=== PATIENT | female | born 1930 | race Caucasian/White ===

== ENCOUNTER 2016-04-02 14:26 | Inpatient (IN) | payer MEDICARE ==
[2016-04-02] MEDS ORDERED: SODIUM CHLORIDE 0.9% 1,000 ML IV STA (15:21)
[2016-04-02] MEDS ORDERED: SODIUM CHLORIDE 0.9% 250 ML IV STA (15:21)
[2016-04-02] MEDS ORDERED: PIPERACILLIN-TAZOBACTAM 3.375 GM in DEXTROSE/WATER 1 50ML.BAG IVPB STA (15:22)
--- NOTE | 2016-04-02 15:24 | ED ---
General Adult HPI - General Chief complaint: Urogenital Stated complaint: UTI-sent by Time Seen by Provider: 04/02/16 15:03 Source: patient, RN notes reviewed Mode of arrival: wheelchair Limitations: no limitations - History of Present Illness Initial comments: Patient is an 85-year-old female who presents emergency room today with a chief complaint of a urinary tract infection. She states she was notified by the family doctor to come to the emergency room for admission for urinary tract infection that can only be treated by IV antibiotics. Patient states that she was at lunch earlier today he did have an episode of feeling lightheaded and dizzy. States is feeling better but feels that she might be, lightheadedness tries to get up. She denies any other complaints or associated symptoms. Patient denies any recent fever, chills, shortness of breath, chest pain, back pain, abdominal pain, nausea or vomiting, numbness or tingling, dysuria or hematuria, constipation or diarrhea, headaches or visual changes, or any other complaints. - Related Data Home Medications Medication Instructions Recorded Confirmed Fenofibrate,Micronized 134 mg PO [id number] 12/11/15 04/02/16 [Fenofibrate] Hydrochlorothiazide [Hydrodiuril] 12.5 mg PO DAILY 12/11/15 04/02/16 Levothyroxine Sodium [Synthroid] 88 mcg PO DAILY 12/11/15 04/02/16 Lisinopril 20 mg PO BID 12/11/15 04/02/16 Memantine [Namenda] 5 mg PO DAILY 12/11/15 04/02/16 Atorvastatin [Lipitor] 10 mg PO HS 12/13/15 04/02/16 Calcium Carbonate/Vitamin D3 1 tab PO DAILY 12/13/15 04/02/16 [Calcium 600-Vit D3 200 Tablet] Cholecalciferol [Vitamin D3] 5,000 unit PO DAILY 12/13/15 04/02/16 Fexofenadine HCl [Beatrice Allergy] 180 mg PO DAILY 12/13/15 04/02/16 Glucosamine HCl/Chondr Gómez A Na 1 tab PO DAILY 12/13/15 04/02/16 [Osteo Bi-Flex Caplet] Meclizine [Antivert] 25 mg PO TID PRN 12/13/15 04/02/16 QUEtiapine [SEROquel] 12.5 mg PO HS 12/13/15 04/02/16 Rivastigmine 9.5MG/24Hr Patch 1 patch TRANSDERM DAILY 12/13/15 04/02/16 [Exelon 9.5MG/24Hr Patch] Brimonidine Tartrate [Alphagan P 1 drops RIGHT EYE BID 04/02/16 04/02/16 0.2% Ophth Soln] Omeprazole [PriLOSEC] 40 mg PO DAILY 04/02/16 04/02/16 amLODIPine [Norvasc] 5 mg PO DAILY 04/02/16 04/02/16 Previous Rx's Medication Instructions Recorded Metoprolol Tartrate [Lopressor] 50 mg PO DAILY #90 tab 12/15/15 Allergies Allergy/AdvReac Type Severity Reaction Status Date / Time No Known Allergies Allergy Verified 04/02/16 15:40 Review of Systems ROS Statement: Those systems with pertinent positive or pertinent negative responses have been documented in the HPI. ROS Other: All systems not noted in ROS Statement are negative. Past Medical History Past Medical History: Hyperlipidemia, Hypertension, Thyroid Disorder Additional Past Medical History / Comment(s): frequent UTI's, rectal prolapse, bladder prolapse-passary in place History of Any Multi-Drug Resistant Organisms: None Reported Past Surgical History: Cholecystectomy, Hysterectomy Past Anesthesia/Blood Transfusion Reactions: No Reported Reaction Past Psychological History: No Psychological Hx Reported Smoking Status: Former smoker Past Alcohol Use History: None Reported Past Drug Use History: None Reported - Past Family History Mother Additional Family Medical History / Comment(s): aneurysm Father Family Medical History: No Reported History General Exam - General Exam Comments Initial Comments: General: The patient is awake and alert, in no distress, and does not appear acutely ill. Eye: Pupils are equal, round and reactive to light, extra-ocular movements are intact. No nystagmus. There is normal conjunctiva bilaterally. No signs of icterus. Ears, nose, mouth and throat: There are moist mucous membranes and no oral lesions. Neck: The neck is supple, there is no tenderness or JVD. Cardiovascular: There is a regular rate and rhythm. No murmur, rub or gallop is appreciated. Respiratory: Lungs are clear to auscultation, respirations are non-labored, breath sounds are equal. No wheezes, stridor, rales, or rhonchi. Gastrointestinal: Soft, non-distended, non-tender abdomen without masses or organomegaly noted. There is no rebound or guarding present. No CVA tenderness. Bowel sounds are unremarkable. Musculoskeletal: Normal ROM, no tenderness. Strength 5/5. Sensation intact. Pulses equal bilaterally 2+. Neurological: A&O x 3. CN II-XII intact, There are no obvious motor or sensory deficits. Coordination appears grossly intact. Speech is normal. Skin: Skin is warm and dry and no rashes or lesions are noted. Psychiatric: Cooperative, appropriate mood & affect, normal judgment. Limitations: no limitations Course Vital Signs 04/02/16 14:30 Temperature 97.1 F L Pulse Rate 60 Respiratory 18 Rate Blood Pressure 106/53 O2 Sat by Pulse 100 Oximetry - Reevaluation(s) Reevaluation #1: 04/02/16 15:26 Patient's urinalysis from the [facility] performed on March 30 was reviewed showing greater than 100 WBCs. Nitrates negative. 3+ leukocytes. Urine culture shows resistance to Levaquin and Cipro. Shows susceptibility to Zosyn. Medical Decision Making - Medical Decision Making Patient's labs been reviewed. No elevated white count. Vital stable here in the emergency room. Patient shows no signs of distress. Patient's outside urinalysis and culture reviewed showing urinary tract infections susceptible to Zosyn. Started on Zosyn here in the emergency room. Case discussed with the physician Dr. Espino will be admitted to Dr. Nicole for IV antibiotics. - Lab Data Result diagrams: 04/02/16 14:55 04/02/16 14:55 Lab Results 04/02/16 04/02/16 Range/Units 14:55 14:55 WBC 6.9 (3.8-10.6) k/uL RBC 4.22 (3.80-5.40) m/uL Hgb 11.8 (11.4-16.0) gm/dL Hct 36.8 (34.0-46.0) % MCV 87.2 (80.0-100.0) fL MCH 28.0 (25.0-35.0) pg MCHC 32.1 (31.0-37.0) g/dL RDW 14.7 (11.5-15.5) % Plt Count 181 (150-450) k/uL Neutrophils % 64 % Lymphocytes % 22 % Monocytes % 7 % Eosinophils % 5 % Basophils % 1 % Neutrophils # 4.4 (1.3-7.7) k/uL Lymphocytes # 1.5 (1.0-4.8) k/uL Monocytes # 0.5 (0-1.0) k/uL Eosinophils # 0.4 (0-0.7) k/uL Basophils # 0.1 (0-0.2) k/uL Sodium 141 (137-145) mmol/L Potassium 4.3 (3.5-5.1) mmol/L Chloride 100 (98-107) mmol/L Carbon Dioxide 28 (22-30) mmol/L Anion Gap 13 mmol/L BUN 38 H (7-17) mg/dL Creatinine 1.17 H (0.52-1.04) mg/dL Est GFR (MDRD) Af Amer 53 (>60 ml/min/1.73 sqM) Est GFR (MDRD) Non-Af 44 (>60 ml/min/1.73 sqM) Glucose 101 H (74-99) mg/dL Calcium 9.9 (8.4-10.2) mg/dL Total Bilirubin 0.5 (0.2-1.3) mg/dL AST 32 (14-36) U/L ALT 28 (9-52) U/L Alkaline Phosphatase 40 (38-126) U/L Total Protein 7.3 (6.3-8.2) g/dL Albumin 4.3 (3.5-5.0) g/dL Disposition Clinical Impression: UTI (urinary tract infection) Disposition: ADMITTED IP TO THIS HOSP Condition: Good Time of Disposition: 16:21
[2016-04-02 15:30] LABS: Basophils # (A) 0.1 k/uL (0-0.2); Basophils % (A) 1 %; CH 28.2; CHCM 32.5; Eosinophils # (A) 0.4 k/uL (0-0.7); Eosinophils % (A) 5 %; HCT 36.8 % (34.0-46.0); HDW 2.14; HGB 11.8 gm/dL (11.4-16.0); Luc # (Auto) 0.09; Luc % (Auto) 1; Lymphocytes # (A) 1.5 k/uL (1.0-4.8); Lymphocytes % (A) 22 %; MCHC 32.1 g/dL (31.0-37.0); MCV 87.2 fL (80.0-100.0); Mean Platelet Volume 8.7; Monocytes # (A) 0.5 k/uL (0-1.0); Monocytes % (A) 7 %; Neutrophils # (A) 4.4 k/uL (1.3-7.7); Neutrophils % (A) 64 %; RBC 4.22 m/uL (3.80-5.40); RDW 14.7 % (11.5-15.5); WBC 6.9 k/uL (3.8-10.6); WBC (Perox) 7.04
[2016-04-02 15:41] LABS: Calcium 9.9 mg/dL (8.4-10.2); Potassium 4.3 mmol/L (3.5-5.1); Total Bilirubin 0.5 mg/dL (0.2-1.3); Total Protein 7.3 g/dL (6.3-8.2)
[2016-04-02] MEDS ORDERED: SODIUM CHLORIDE 0.9% 1,000 ML IV ONE (16:18)
[2016-04-02] MEDS ORDERED: NALOXONE 0.4 MG/ML 1 ML VIAL IV PRN (16:18)
[2016-04-02] MEDS ORDERED: HYDROcodone/APAP 5-325MG 1 EACH TAB PO PRN (16:18)
[2016-04-02] MEDS ORDERED: ONDANSETRON 4 MG/2 ML VIAL IVP PRN (16:18)
[2016-04-02 19:42] LABS: Appearance,Urine Cloudy (Clear); Bilirubin,Urine Negative (Negative); Glucose,Urine (UA) Negative (Negative); Ketones,Urine Negative (Negative); Leukocyte Esterase,Urine Large (Negative); Mucus,Urine Rare /hpf; Nitrite,Urine Positive (Negative); PH, Urine 6.5 (5.0-8.0); Particle Count 7759; Protein,Urine Trace (Negative); RBC,Urine 10 /hpf (0-5); Specific Gravity,Urine 1.013 (1.001-1.035); Squamous Epithelial Cell,Urine 6 /hpf (0-4); UA Billing (MACRO vs. MICRO) MICRO; Urobilinogen,Urine <2.0 mg/dL (<2.0); WBC,Urine >182 /hpf (0-5)
[2016-04-02] MEDS: PIPERACILLIN-TAZOBACTAM 3.375 GM in DEXTROSE/WATER 1 50ML.BAG IVPB SCH (23:05)
[2016-04-02] MEDS: ATORVASTATIN 10 MG TAB PO SCH (23:34)
[2016-04-02] MEDS: QUEtiapine 25 MG TAB PO SCH (23:34)
[2016-04-02] MEDS: LORazepam 1 MG TAB PO PRN (23:40)
[2016-04-03 08:36] LABS: Basophils # (A) 0.1 k/uL (0-0.2); Basophils % (A) 1 %; CH 27.9; CHCM 31.9; Eosinophils # (A) 0.4 k/uL (0-0.7); Eosinophils % (A) 7 %; HCT 37.8 % (34.0-46.0); HDW 2.12; HGB 11.9 gm/dL (11.4-16.0); Luc % (Auto) 2; Lymphocytes # (A) 1.3 k/uL (1.0-4.8); Lymphocytes % (A) 20 %; MCH 27.6 pg (25.0-35.0); MCHC 31.4 g/dL (31.0-37.0); MCV 87.9 fL (80.0-100.0); Mean Platelet Volume 8.1; Monocytes # (A) 0.4 k/uL (0-1.0); Monocytes % (A) 7 %; Neutrophils # (A) 4.1 k/uL (1.3-7.7); Neutrophils % (A) 64 %; RDW 14.5 % (11.5-15.5); WBC 6.4 k/uL (3.8-10.6); WBC (Perox) 6.38
[2016-04-03 09:00] LABS: Calcium 9.8 mg/dL (8.4-10.2); Magnesium 1.7 mg/dL (1.6-2.3); Potassium 4.1 mmol/L (3.5-5.1); Total Bilirubin 0.8 mg/dL (0.2-1.3)
[2016-04-03] MEDS: PIPERACILLIN-TAZOBACTAM 3.375 GM in DEXTROSE/WATER 1 50ML.BAG IVPB SCH (09:25)
[2016-04-03] MEDS: LORazepam 1 MG TAB PO PRN (09:25)
[2016-04-03] MEDS: ACETAMINOPHEN TAB 325 MG TAB PO PRN (10:32)
[2016-04-03] MEDS ORDERED: MECLIZINE 25 MG TAB PO PRN (11:34)
[2016-04-03] MEDS ORDERED: HYDROCHLOROTHIAZIDE 12.5 MG CAP PO SCH (12:30)
[2016-04-03] MEDS: LEVOTHYROXINE 88 MCG TAB PO SCH (12:37)
[2016-04-03] MEDS: CALCIUM CARB-VIT D 500MG-200UN 1 EACH TAB PO SCH (12:37)
[2016-04-03] MEDS: RIVASTIGMINE 9.5MG/24HR PATCH TRANSDERM SCH (12:46)
[2016-04-03] MEDS: CHOLECALCIFEROL 1,000 UNIT TAB PO SCH (12:46)
[2016-04-03] MEDS: PANTOPRAZOLE 40 MG TABLET PO SCH (12:47)
[2016-04-03] MEDS: amLODIPine 5 MG TAB PO SCH (12:47)
[2016-04-03] MEDS: FENOFIBRATE 160 MG TAB PO SCH (12:47)
[2016-04-03] MEDS: MEMANTINE 5 MG TAB PO SCH (12:47)
[2016-04-03] MEDS: METOPROLOL TARTRATE 50 MG TAB PO SCH (12:47)
[2016-04-03] MEDS: SODIUM CHLORIDE 0.9% 1,000 ML IV SCH ×2 (13:29→20:23)
[2016-04-03] MEDS ORDERED: MEROPENEM 500 MG in SODIUM CHLORIDE 0.9% 50 ML IVPB SCH (14:00)
--- NOTE | 2016-04-03 18:48 | HP ---
DATE OF ADMISSION: Patient is an 85-year-old pleasant female who came in, had multiple UTIs in the past, had Escherichia coli in the past which is resistant to Zosyn and sensitive to carbapenems. She came in to emergency department because she was confused last night. Patient was feeling quite weak with generalized weakness, fatigue and patient was started on Zosyn here which I changed to meropenem. Patient denied any fever, chills. Patient does not have any leukocytosis. Denied any suprapubic pain, dysuria. Patient has a urinary frequency, patient incontinence. The patient has pessary in place as well. Patient denied any lightheadedness. Patient's symptoms significantly improved. Patient is still weak though. Patient denied any focal weakness. Denied any cough, runny nose. REVIEW OF SYSTEMS: CONSTITUTIONAL: As described in HPI. HEENT: No recent visual problems or hearing problems. Denied any sore throat. CARDIOVASCULAR: No chest pain, orthopnea, PND, no palpitations, no syncope. PULMONARY: No shortness of breath, no cough, no hemoptysis. GASTROINTESTINAL: No diarrhea, no nausea, no vomiting, no abdominal pain. Normoactive bowel sounds. NEUROLOGICAL: No headaches, no weakness, no numbness. HEMATOLOGICAL: Denies any bleeding or petechiae. GENITOURINARY: As described in HPI. MUSCULOSKELETAL/RHEUMATOLOGICAL: Denies any joint pain, swelling, or any muscle pain. ENDOCRINE: Denies any polyuria or polydipsia. The rest of the 14 point review of systems is negative. Home medications include fenofibrate, hydrochlorothiazide, levothyroxine, lisinopril, memantine, atorvastatin, cholecalciferol, fexofenadine, glucosamine, meclizine, Seroquel, rivastigmine, brimonidine, omeprazole, amlodipine and metoprolol. 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 SOCIAL HISTORY: Former smoker. Denied any alcohol abuse or any drug abuse. FAMILY HISTORY: Aneurysm. Father's history is unknown. PHYSICAL EXAMINATION: Temperature 98.4, pulse of 68, respiratory rate of 16, blood pressure is 122/68. GENERAL: Patient is alert and oriented x around 2. HEENT: Pupils are round and equally reacting to light. EOMI. No scleral icterus. No conjunctival pallor. Normocephalic, atraumatic. No pharyngeal erythema. No thyromegaly. CARDIOVASCULAR: S1 and S2 present. No murmurs, rubs, or gallops. PULMONARY: Chest is clear to auscultation, no wheezing or crackles. ABDOMEN: Soft, nontender, nondistended, normoactive bowel sounds. No palpable organomegaly. MUSCULOSKELETAL: No joint swelling or deformity. EXTREMITIES: No cyanosis, clubbing, or pedal edema. NEUROLOGICAL: Gross neurological examination did not reveal any focal deficits. SKIN: No rashes. LABORATORY DATA: CBC, CMP are abnormal for elevated BUN and creatinine of 30 and 1.13. Patient was started on IV fluids. Hydrochlorothiazide was discontinued. UA was done which showed significant abnormalities including greater than 182 WBCs, large leukocyte esterase, 10 RBCs. ASSESSMENT AND PLAN: 1. Acute toxic encephalopathy, probably due to urinary tract infection. I cannot find any other source except for a couple medications, which is anticholinergic medication in the form of loratadine and [place]. Those will be discontinued. Patient is on a p.r.n. basis for Ativan for agitation, which will be discontinued as well. We will give p.r.n. Haldol or decrease Seroquel. I will use tramadol for pain. Considering her age and dementia benzodiazepines, barbiturates, opiates and anticholinergic medications will need to be avoided. 2. Possibility of urinary tract infection for which patient was started on meropenem because of above-mentioned reasons. Patient had Escherichia coli in 2014 which is resistant to Zosyn. I will get infectious disease to evaluate the patient. 3. Possibility of acute renal failure. Patient will be started on IV fluids. Hydrochlorothiazide will be held. 4. Type 2 diabetes mellitus. 5. Hypertension. Except for hydrochlorothiazide, the rest of the antihypertensives will be continued 6. 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 The patient is on rivastigmine and memantine, which will be continued. 7. Hypothyroidism. Continue with levothyroxine. PLAN: As mentioned above.
[2016-04-03] MEDS: LISINOPRIL 20 MG TAB PO SCH (20:22)
[2016-04-03] MEDS: QUEtiapine 25 MG TAB PO SCH (20:22)
[2016-04-03] MEDS: ATORVASTATIN 10 MG TAB PO SCH (20:22)
[2016-04-03] MEDS: BRIMONIDINE TARTRATE 0.2% DROPS 5 ML BTL RIGHT EYE SCH (20:23)
--- NOTE | 2016-04-03 21:44 | P.CONS ---
History of Present Illness - Reason for Consult Consult date: 04/03/16 - Chief Complaint Tract infection - History of Present Illness 85-year-old female who has history of dementia [facility] is a known history of rectocele and cystocele. In 2015 had a myocardial infarction was treated medically. She's had ongoing difficulties with her urinary system and follows with urology in the [place] area. The pessary ring was placed. In November 2015 she was having some difficulty with urinary retention. Eventually she had improvement. She is at this time within that she felt very poorly yesterday. She had the sudden onset of what appears to be chilled and right ear. In the days prior to that she was having some other symptoms and there were concern for urinary infection and constantly urinalysis and culture were sent. If this is comeback with evidence of drug-resistant pathogens the patient was brought in the hospital and infectious diseases consultation was requested. At this time this pleasant woman who is a poor historian relates that she's feeling better tonight. She is living at the [facility] and chills have improved. At this time she denying significant headache chest pain abdominal pain nausea or emesis. She did have urinary symptoms and they are apparently chronic does have some urinary incontinence and was having some discomfort. Review of Systems 85-year-old woman who seems to be modestly comfortable HEENT:Denies headache or acute visual change. Denies sinus or mouth discomforts. Denies neck stiffness or pain. Denies significant oral cavity pain. Denies difficulty on swallowing. Lungs: Denies significant shortness of breath, cough, sputum production, or hemoptysis. Cardiovascular: Denies significant shortness of breath, chest pain, chest wall pain, orthopnea, dyspnea on exertion, syncope Gastrointestinal:Denies nausea, vomiting, diarrhea, constipation, hematemesis, melena, hematochezia. No no significant change of bowel habit noticed. Urogenital as per the HPI Musculoskeletal: denies significant myalgias or arthralgias. No new joint swelling. Denies new back pain. Skin: Denies new rash or lesions. No new ulcers or wounds are related.. Neuro: Denies headache or visual change. Relates she had significant shaking yesterday. Normally does not have troubles with falls. Psychiatric:Denies anxiety or depression. Endocrine: Denies significant fatigue, denies significant weight loss or weight gain. Past Medical History Past Medical History: CVA/TIA, Dementia, Hearing Disorder / Deafness, Hyperlipidemia, Hypertension, Myocardial Infarction ([place]), Thyroid Disorder Additional Past Medical History / Comment(s): frequent UTI's, rectal prolapse, bladder prolapse-passary in place, HAS 3 AAA",TIA,RT EYE GLAUCOMA(MILD) BEING [place] ,SHINGLES 2006, DIVERTICULITIS,SCOLIOSIS,, BRUISES EASILY Last Myocardial Infarction Date:: History of Any Multi-Drug Resistant Organisms: None Reported Past Surgical History: Appendectomy, Cholecystectomy, Hysterectomy, Tonsillectomy Past Anesthesia/Blood Transfusion Reactions: No Reported Reaction Past Psychological History: No Psychological Hx Reported Additional Psychological History / Comment(s): IN PAST WHEN CONFUSED OR AGITATED PT HAS BITTEN MEDICAL STAFF OR STARTED YELLING AND THROWING THINGS . lives the [facility]. Daughter is local PA and is very involved in her care. Remote tobacco use no alcohol use no animal exposures. No experience no travel Smoking Status: Former smoker Past Alcohol Use History: None Reported Past Drug Use History: None Reported - Past Family History Mother Additional Family Medical History / Comment(s): aneurysm Father Family Medical History: No Reported History Medications and Allergies Home Medications and Allergies Comment(s): Current Medications Acetaminophen (Tylenol Tab) 650 mg PO Q6HR PRN PRN Reason: Mild Pain or Fever > 100.5 Last Admin: 04/03/16 10:32 Dose: 650 mg Amlodipine Besylate (Norvasc) 5 mg PO DAILY [facility] Last Admin: 04/03/16 12:47 Dose: 5 mg Atorvastatin Calcium (Lipitor) 10 mg PO [facility] Last Admin: 04/03/16 20:22 Dose: 10 mg Brimonidine Tartrate (Alphagan P 0.2% Ophth Soln) 1 drops RIGHT EYE BID [facility] Last Admin: 04/03/16 20:23 Dose: 1 drops Calcium Carbonate (Oscal 500+D) 1 each PO DAILY@1200 [facility] Last Admin: 04/03/16 12:37 Dose: 1 each Cholecalciferol (Vitamin D3) 5,000 unit PO DAILY [facility] Last Admin: 04/03/16 12:46 Dose: 5,000 unit [facility]ibrate ([facility]ofibra) [facility] Last Admin: 04/03/16 12:47 Dose: 160 mg Sodium Chloride (Saline 0.9%) 1,000 mls @ 100 mls/hr IV .Q10H [facility] Last Admin: 04/03/16 20:23 Dose: 100 mls/hr Meropenem 500 mg/ Sodium (Chloride) 50 mls @ 100 mls/hr IVPB Q12H [facility] Levothyroxine Sodium (Synthroid) 88 mcg PO DAILY@0630 [facility] Last Admin: 04/03/16 12:37 Dose: 88 mcg Lisinopril (Zestril) 20 mg PO BID [facility] Last Admin: 04/03/16 20:22 Dose: 20 mg Meclizine HCl (Antivert) 25 mg PO TID PRN PRN Reason: Vertigo Last Admin: 04/03/16 20:22 Dose: 25 mg Memantine (Namenda) 5 mg PO DAILY [facility] Last Admin: 04/03/16 12:47 Dose: 5 mg Metoprolol Tartrate (Lopressor) 50 mg PO DAILY [facility] Last Admin: 04/03/16 12:47 Dose: 50 mg Naloxone HCl (Narcan) 0.2 mg IV Q2M PRN PRN Reason: Opioid Reversal Ondansetron HCl (Zofran) 4 mg IVP Q8HR PRN PRN Reason: Nausea And Vomiting Pantoprazole Sodium (Protonix) [address] [facility] Last Admin: 04/03/16 12:47 Dose: 40 mg Quetiapine Fumarate (Seroquel) 12.5 mg PO HS [facility] Last Admin: 04/03/16 20:22 Dose: 12.5 mg Rivastigmine (Exelon 9.5mg/24hr Patch) 1 patch TRANSDERM DAILY [facility] Last Admin: 04/03/16 12:46 Dose: 1 patch Tramadol HCl (Ultram) 50 mg PO QID PRN PRN Reason: Pain/Discomfort Home Medications Medication Instructions Recorded Confirmed Type Fenofibrate,Micronized 134 mg PO [facility] 12/11/15 04/02/16 History [Fenofibrate] Hydrochlorothiazide [Hydrodiuril] 12.5 mg PO DAILY 12/11/15 04/02/16 History Levothyroxine Sodium [Synthroid] 88 mcg PO DAILY 12/11/15 04/02/16 History Lisinopril 20 mg PO BID 12/11/15 04/02/16 History Memantine [Namenda] 5 mg PO DAILY 12/11/15 04/02/16 History Atorvastatin [Lipitor] 10 mg PO HS 12/13/15 04/02/16 History Calcium Carbonate/Vitamin D3 1 tab PO DAILY 12/13/15 04/02/16 History [Calcium 600-Vit D3 200 Tablet] Cholecalciferol [Vitamin D3] 5,000 unit PO DAILY 12/13/15 04/02/16 History Fexofenadine HCl [Beatrice Allergy] 180 mg PO DAILY 12/13/15 04/02/16 History Glucosamine HCl/Chondr Gómez A Na 1 tab PO DAILY 12/13/15 04/02/16 History [Osteo Bi-Flex Caplet] Meclizine [Antivert] 25 mg PO TID PRN 12/13/15 04/02/16 History QUEtiapine [SEROquel] 12.5 mg PO HS 12/13/15 04/02/16 History Rivastigmine 9.5MG/24Hr Patch 1 patch TRANSDERM DAILY 12/13/15 04/02/16 History [Exelon 9.5MG/24Hr Patch] Brimonidine Tartrate [Alphagan P 1 drops RIGHT EYE BID 04/02/16 04/02/16 History 0.2% Ophth Soln] LORazepam [Ativan] 1 mg PO TID PRN 04/02/16 04/02/16 History Omeprazole [PriLOSEC] 40 mg PO DAILY 04/02/16 04/02/16 History amLODIPine [Norvasc] 5 mg PO DAILY 04/02/16 04/02/16 History Allergies Allergy/AdvReac Type Severity Reaction Status Date / Time No Known Allergies Allergy Verified 04/02/16 15:40 Physical Exam Vitals: Vital Signs Temp Pulse Resp BP Pulse Ox 04/03/16 15:00 98.4 F 68 16 122/68 96 04/03/16 07:00 97.9 F 62 18 150/76 94 L 04/02/16 23:00 99.3 F 62 16 130/73 94 L Intake and Output 04/03/16 04/03/16 04/03/16 06:59 14:59 22:59 Intake Total 250 Balance 250 Intake: Oral 250 Other: Voiding Method Bedside Commode Bedside Commode Incontinent Incontinent # Voids 2 1 1 85-year-old woman who is quite comfortable at this time. Was somewhat difficult to arouse but when she was awake was conversational although poor content she was pleasant. Not aggressive or agitated HEENT: Anicteric conjunctiva are pink and moist nasal mucosa grossly intact without significant lesions, there is no thrush. Oral mucosa slightly dry Neck: The neck is supple without significant lymphadenopathy or thyromegaly. Lungs: Good bilateral air entry without significant crackles or wheezing. There is no significant bronchial sounds. There is no egophony or dullness. Heart: Irregular with an audible S1 and S2 no S3 soft S4 no murmur click or rub Abdomen: Positive bowel sounds soft and nontender without palpable masses or organomegaly. There was no guarding or rebound. No tenderness over the bladder no flank tenderness Extremities: The upper extremities have excellent pulses they are symmetric, no significant petechiae or telangiectasia. No splinter hemorrhages were noted. The lower extremities are free from significant edema. The peripheral pulses were 2+ and symmetric. Neuro: Arousable oriented to person and place was aware that she was in the hospital. Follows simple commands Results CBC & Chem 7: 04/03/16 08:15 04/03/16 08:15 Labs: Abnormal Lab Results - Last 24 Hours (Table) 04/03/16 04/03/16 Range/Units 08:15 08:15 Plt Count 143 L (150-450) k/uL BUN 30 H (7-17) mg/dL Creatinine 1.13 H (0.52-1.04) mg/dL Alkaline Phosphatase 37 L (38-126) U/L Microbiology - Last 24 Hours (Table) 04/02/16 17:28 Urine Culture - Preliminary Urine,Voided Laboratory Results WBC 6.4 k/uL (3.8-10.6) 04/03/16 08:15 RBC 4.30 m/uL (3.80-5.40) 04/03/16 08:15 Hgb 11.9 gm/dL (11.4-16.0) 04/03/16 08:15 Hct 37.8 % (34.0-46.0) 04/03/16 08:15 MCV 87.9 fL (80.0-100.0) 04/03/16 08:15 MCH 27.6 pg (25.0-35.0) 04/03/16 08:15 MCHC 31.4 g/dL (31.0-37.0) 04/03/16 08:15 RDW 14.5 % (11.5-15.5) 04/03/16 08:15 Plt Count 143 k/uL (150-450) L 04/03/16 08:15 Neutrophils % 64 % 04/03/16 08:15 Lymphocytes % 20 % 04/03/16 08:15 Monocytes % 7 % 04/03/16 08:15 Eosinophils % 7 % 04/03/16 08:15 Basophils % 1 % 04/03/16 08:15 Neutrophils # 4.1 k/uL (1.3-7.7) 04/03/16 08:15 Lymphocytes # 1.3 k/uL (1.0-4.8) 04/03/16 08:15 Monocytes # 0.4 k/uL (0-1.0) 04/03/16 08:15 Eosinophils # 0.4 k/uL (0-0.7) 04/03/16 08:15 Basophils # 0.1 k/uL (0-0.2) 04/03/16 08:15 Sodium 144 mmol/L (137-145) 04/03/16 08:15 Potassium 4.1 mmol/L (3.5-5.1) 04/03/16 08:15 Chloride 106 mmol/L (98-107) 04/03/16 08:15 Carbon Dioxide 24 mmol/L (22-30) 04/03/16 08:15 Anion Gap 14 mmol/L 04/03/16 08:15 BUN 30 mg/dL (7-17) H 04/03/16 08:15 Creatinine 1.13 mg/dL (0.52-1.04) H 04/03/16 08:15 Est GFR (MDRD) Af Amer 55 (>60 ml/min/1.73 sqM) 04/03/16 08:15 Est GFR (MDRD) Non-Af 46 (>60 ml/min/1.73 sqM) 04/03/16 08:15 Glucose 91 mg/dL (74-99) 04/03/16 08:15 Plasma Lactic Acid Mark 1.0 mmol/L (0.7-2.0) 04/02/16 15:33 Calcium 9.8 mg/dL (8.4-10.2) 04/03/16 08:15 Magnesium 1.7 mg/dL (1.6-2.3) 04/03/16 08:15 Total Bilirubin 0.8 mg/dL (0.2-1.3) 04/03/16 08:15 AST 30 U/L (14-36) 04/03/16 08:15 ALT 30 U/L (9-52) 04/03/16 08:15 Alkaline Phosphatase 37 U/L (38-126) L 04/03/16 08:15 Total Protein 7.0 g/dL (6.3-8.2) 04/03/16 08:15 Albumin 4.0 g/dL (3.5-5.0) 04/03/16 08:15 Urine Color Yellow 04/02/16 17:28 Urine Appearance Cloudy (Clear) H 04/02/16 17:28 Urine pH 6.5 (5.0-8.0) 04/02/16 17:28 Ur Specific [place] 1.013 (1.001-1.035) 04/02/16 17:28 Urine Protein Trace (Negative) H 04/02/16 17:28 Urine Glucose (UA) Negative (Negative) 04/02/16 17:28 Urine Ketones Negative (Negative) 04/02/16 17:28 Urine Blood Trace (Negative) H 04/02/16 17:28 Urine Nitrate Positive (Negative) H 04/02/16 17:28 Urine Bilirubin Negative (Negative) 04/02/16 17:28 Urine Urobilinogen <2.0 mg/dL (<2.0) 04/02/16 17:28 Ur Leukocyte Esterase Large (Negative) H 04/02/16 17:28 Urine RBC 10 /hpf (0-5) H 04/02/16 17:28 Urine WBC >182 /hpf (0-5) H 04/02/16 17:28 Urine WBC Clumps Few /hpf (None) H 04/02/16 17:28 Ur Squamous Epith Cells 6 /hpf (0-4) H 04/02/16 17:28 Hyaline Casts 3 /lpf (0-2) H 04/02/16 17:28 Urine Mucus Rare /hpf (None) H 04/02/16 17:28 Microbiology 04/02/16 15:33 Blood Blood Culture - Preliminary No Growth after 24 hours 04/02/16 17:28 Urine,Voided Urine Culture - Preliminary Outpatient urine culture is 11 pseudomonas aeruginosa resistant to quinolones. Urinalysis was markedly abnormal with many white cells and many bacteria and nitrate positive Assessment and Plan (1) Bladder prolapse Status: Acute (2) UTI (urinary tract infection) Narrative/Plan: 85-year-old female has a known history of rectocele and cystocele. There was contemplation for some surgical intervention she a myocardial infarction this last November. The pessary ring was used. She was having some urinary retention around that event. This then apparently improved. It is not clear that she is having ongoing difficulties with urinary retention. She follows with urology in the [place] area. If this time there is evidence of pseudomonas aeruginosa in her urine that is quinolone resistant. And consequently intra-venous antibiotic therapy was ceftazadime will be utilized. This will give us maximum penetration of the urinary system. If he evidence of negative blood cultures and PICC line can be placed and recently made for outpatient intravenous antibiotic therapy Personally she is quite calm and cooperative at this time. There is notation that when she is ill she can be very aggressive. She does not have evidence of maris sepsis this point time. But does have evidence of acute renal failure will need hydration and careful monitoring of her fluid status. She has been maintained for her dementia and this should continue. She forcefully is calm at this time. Status: Acute (3) Acute renal failure Status: Acute
[2016-04-04] MEDS ORDERED: MEROPENEM 500 MG in SODIUM CHLORIDE 0.9% 50 ML IVPB SCH ×2
[2016-04-04] MEDS: LEVOTHYROXINE 88 MCG TAB PO SCH (05:53)
[2016-04-04] MEDS: FENOFIBRATE 160 MG TAB PO SCH (08:20)
[2016-04-04] MEDS: amLODIPine 5 MG TAB PO SCH (08:21)
[2016-04-04] MEDS: PANTOPRAZOLE 40 MG TABLET PO SCH (08:21)
[2016-04-04] MEDS: CHOLECALCIFEROL 1,000 UNIT TAB PO SCH (08:21)
[2016-04-04] MEDS: BRIMONIDINE TARTRATE 0.2% DROPS 5 ML BTL RIGHT EYE SCH ×2 (08:21→20:49)
[2016-04-04] MEDS: RIVASTIGMINE 9.5MG/24HR PATCH TRANSDERM SCH (08:22)
[2016-04-04] MEDS: METOPROLOL TARTRATE 50 MG TAB PO SCH (08:22)
[2016-04-04] MEDS: MEMANTINE 5 MG TAB PO SCH (08:22)
[2016-04-04] MEDS: LISINOPRIL 20 MG TAB PO SCH ×2 (08:22→20:51)
[2016-04-04] MEDS: SODIUM CHLORIDE 0.9% 1,000 ML IV SCH ×2 (08:23→20:41)
[2016-04-04 08:47] LABS: CH 28.2; CHCM 31.8; HCT 35.5 % (34.0-46.0); HDW 2.17; MCH 27.6 pg (25.0-35.0); MCV 89.1 fL (80.0-100.0); Mean Platelet Volume 8.2; RBC 3.99 m/uL (3.80-5.40); RDW 14.7 % (11.5-15.5); WBC 6.1 k/uL (3.8-10.6)
[2016-04-04] MEDS ORDERED: LORATADINE 10 MG TAB PO SCH (09:00)
[2016-04-04] MEDS ORDERED: NON-FORMULARY DRUG (Glucosamine Hcl/Chondr Su A Na [Osteo Bi-Flex Caplet] 1 TAB) PO SCH (09:00)
[2016-04-04 09:15] LABS: Anion Gap 11 mmol/L; Blood Urea Nitrogen 20 mg/dL (7-17); Calcium 9.5 mg/dL (8.4-10.2); Carbon Dioxide 26 mmol/L (22-30); Chloride 107 mmol/L (98-107); Glucose 137 mg/dL (74-99); Non-African American GFR(MDRD) >60 (>60 ml/min/1.73 sqM); Potassium 3.8 mmol/L (3.5-5.1); Sodium 144 mmol/L (137-145)
[2016-04-04] MEDS: CALCIUM CARB-VIT D 500MG-200UN 1 EACH TAB PO SCH (12:22)
[2016-04-04] MEDS: ACETAMINOPHEN TAB 325 MG TAB PO PRN (14:42)
--- NOTE | 2016-04-04 17:52 | P.PN ---
Subjective Patient able to ambulate freely in the halls. This morning patient sitting in chair without complaint patient has had consultation with Dr. Bradshaw antibiotic changed. Awaiting blood cultures if negative patient will be having a PICC line inserted Objective - Vital Signs Vital signs: Vital Signs Temp 97.4 F L 04/04/16 15:00 Pulse 63 04/04/16 15:00 Resp 16 04/04/16 15:00 BP 139/84 04/04/16 15:00 Pulse Ox 98 04/04/16 15:00 Intake & Output 04/03/16 04/04/16 04/04/16 18:59 06:59 18:59 Intake Total 250 300 Balance 250 300 Intake: Oral 250 300 Other: Voiding Method Bedside Commode Bedside Commode Bedside Commode Incontinent Incontinent Incontinent # Voids 1 1 9 # Bowel Movements 2 4 - Constitutional General appearance: Present: average body habitus - EENT Eyes: Present: PERRLA ENT: Present: hard of hearing Ears: bilateral: normal - Neck Neck: Present: normal ROM - Respiratory Respiratory: bilateral: CTA - Cardiovascular Rhythm: regular - Gastrointestinal General gastrointestinal: Present: soft - Integumentary Integumentary: Present: normal - Neurologic Neurologic: Present: CNII-XII intact - Musculoskeletal Musculoskeletal: Present: gait normal - Psychiatric Psychiatric Comment(s): Patient awake and alert has periods of confusion - Labs CBC & Chem 7: 04/04/16 08:19 04/04/16 08:19 Labs: Abnormal Lab Results - Last 24 Hours (Table) 04/04/16 04/04/16 Range/Units 08:19 08:19 Hgb 11.0 L (11.4-16.0) gm/dL Plt Count 145 L (150-450) k/uL BUN 20 H (7-17) mg/dL Glucose 137 H (74-99) mg/dL Assessment and Plan Plan: Assessment Urinary tract infection pseudomonas aeruginosa resistant History of cystocele rectocele has pessary in place Rectal prolapse History of dementia TIAs Thyroid disease Frequent urinary tract infections History of MS History of hypertension History of glaucoma History of aortic abdominal repair thoracic aneurysm repair Plan continue consultation with Dr. Bradshaw Hopeful PICC line placement if blood cultures negative Home care nurse for IV therapy
[2016-04-04] MEDS: QUEtiapine 25 MG TAB PO SCH (20:49)
[2016-04-04] MEDS: ATORVASTATIN 10 MG TAB PO SCH (20:49)
--- NOTE | 2016-04-04 21:55 | P.PN ---
Subjective Principal diagnosis: Urinary tract infection 85-year-old female who has history of dementia lives with her in the [facility] is a known history of rectocele and cystocele. In 2015 had a myocardial infarction was treated medically. She's had ongoing difficulties with her urinary system and follows with urology in the [place] area. The pessary ring was placed. In November 2015 she was having some difficulty with urinary retention. Eventually she had improvement. She is at this time within that she felt very poorly yesterday. She had the sudden onset of what appears to be chilled and right ear. In the days prior to that she was having some other symptoms and there were concern for urinary infection and constantly urinalysis and culture were sent. If this is comeback with evidence of drug-resistant pathogens the patient was brought in the hospital and infectious diseases consultation was requested. At this time this pleasant woman who is a poor historian relates that she's feeling better tonight. She is living at the [facility] and chills have improved. At this time she denying significant headache chest pain abdominal pain nausea or emesis. She did have urinary symptoms and they are apparently chronic does have some urinary incontinence and was having some discomfort. Patient is remaining pleasantly confused. She's complaining of some itching to her back. The nurse aide is applying some lotion which she finds very soothing. Objective - Vital Signs Vital signs: Vital Signs Temp 97.4 F L 04/04/16 15:00 Pulse 63 04/04/16 15:00 Resp 16 04/04/16 15:00 BP 139/84 04/04/16 15:00 Pulse Ox 98 04/04/16 15:00 Intake & Output 04/04/16 04/04/16 04/05/16 06:59 18:59 06:59 Intake Total 300 Balance 300 Intake: Oral 300 Other: Voiding Method Bedside Commode Bedside Commode Incontinent Incontinent # Voids 1 9 # Bowel Movements 2 4 - Exam 85-year-old woman who is quite comfortable at this time. Was somewhat difficult to arouse but when she was awake was conversational although poor content she was pleasant. Not aggressive or agitated HEENT: Anicteric conjunctiva are pink and moist nasal mucosa grossly intact without significant lesions, there is no thrush. Oral mucosa slightly dry Neck: The neck is supple without significant lymphadenopathy or thyromegaly. Lungs: Good bilateral air entry without significant crackles or wheezing. There is no significant bronchial sounds. There is no egophony or dullness. Heart: Irregular with an audible S1 and S2 no S3 soft S4 no murmur click or rub Abdomen: Positive bowel sounds soft and nontender without palpable masses or organomegaly. There was no guarding or rebound. No tenderness over the bladder no flank tenderness Extremities: The upper extremities have excellent pulses they are symmetric, no significant petechiae or telangiectasia. No splinter hemorrhages were noted. The lower extremities are free from significant edema. The peripheral pulses were 2+ and symmetric. Neuro: Arousable oriented to person and place was aware that she was in the hospital. Follows simple commands Skin: Patient complains of pruritus but no obvious rash is noted on her back where she is complaining of itching. - Labs CBC & Chem 7: 04/04/16 08:19 04/04/16 08:19 Labs: Abnormal Lab Results - Last 24 Hours (Table) 04/04/16 04/04/16 Range/Units 08: 08:19 Hgb 11.0 L (11.4-16.0) gm/dL Plt Count 145 L (150-450) k/uL BUN 20 H (7-17) mg/dL Glucose 137 H (74-99) mg/dL Laboratory Results WBC 6.1 k/uL (3.8-10.6) 04/04/16 08:19 RBC 3.99 m/uL (3.80-5.40) 04/04/16 08:19 Hgb 11.0 gm/dL (11.4-16.0) L 04/04/16 08:19 Hct 35.5 % (34.0-46.0) 04/04/16 08:19 MCV 89.1 fL (80.0-100.0) 04/04/16 08:19 MCH 27.6 pg (25.0-35.0) 04/04/16 08:19 MCHC 31.0 g/dL (31.0-37.0) 04/04/16 08:19 RDW 14.7 % (11.5-15.5) 04/04/16 08:19 Plt Count 145 k/uL (150-450) L 04/04/16 08:19 Neutrophils % 64 % 04/03/16 08:15 Lymphocytes % 20 % 04/03/16 08:15 Monocytes % 7 % 04/03/16 08:15 Eosinophils % 7 % 04/03/16 08:15 Basophils % 1 % 04/03/16 08:15 Neutrophils # 4.1 k/uL (1.3-7.7) 04/03/16 08:15 Lymphocytes # 1.3 k/uL (1.0-4.8) 04/03/16 08:15 Monocytes # 0.4 k/uL (0-1.0) 04/03/16 08:15 Eosinophils # 0.4 k/uL (0-0.7) 04/03/16 08:15 Basophils # 0.1 k/uL (0-0.2) 04/03/16 08:15 Sodium 144 mmol/L (137-145) 04/04/16 08:19 Potassium 3.8 mmol/L (3.5-5.1) 04/04/16 08:19 Chloride 107 mmol/L (98-107) 04/04/16 08:19 Carbon Dioxide 26 mmol/L (22-30) 04/04/16 08:19 Anion Gap 11 mmol/L 04/04/16 08:19 BUN 20 mg/dL (7-17) H 04/04/16 08:19 Creatinine 0.88 mg/dL (0.52-1.04) 04/04/16 08:19 Est GFR (MDRD) Af Amer >60 (>60 ml/min/1.73 sqM) 04/04/16 08:19 Est GFR (MDRD) Non-Af >60 (>60 ml/min/1.73 sqM) 04/04/16 08:19 Glucose 137 mg/dL (74-99) H 04/04/16 08:19 Plasma Lactic Acid Mark 1.0 mmol/L (0.7-2.0) 04/02/16 15:33 Calcium 9.5 mg/dL (8.4-10.2) 04/04/16 08:19 Magnesium 1.7 mg/dL (1.6-2.3) 04/03/16 08:15 Total Bilirubin 0.8 mg/dL (0.2-1.3) 04/03/16 08:15 AST 30 U/L (14-36) 04/03/16 08:15 ALT 30 U/L (9-52) 04/03/16 08:15 Alkaline Phosphatase 37 U/L (38-126) L 04/03/16 08:15 Total Protein 7.0 g/dL (6.3-8.2) 04/03/16 08:15 Albumin 4.0 g/dL (3.5-5.0) 04/03/16 08:15 Urine Color Yellow 04/02/16 17:28 Urine Appearance Cloudy (Clear) H 04/02/16 17:28 Urine pH 6.5 (5.0-8.0) 04/02/16 17:28 Ur Specific [place] 1.013 (1.001-1.035) 04/02/16 17:28 Urine Protein Trace (Negative) H 04/02/16 17:28 Urine Glucose (UA) Negative (Negative) 04/02/16 17:28 Urine Ketones Negative (Negative) 04/02/16 17:28 Urine Blood Trace (Negative) H 04/02/16 17:28 Urine Nitrate Positive (Negative) H 04/02/16 17:28 Urine Bilirubin Negative (Negative) 04/02/16 17:28 Urine Urobilinogen <2.0 mg/dL (<2.0) 04/02/16 17:28 Ur Leukocyte Esterase Large (Negative) H 04/02/16 17:28 Urine RBC 10 /hpf (0-5) H 04/02/16 17:28 Urine WBC >182 /hpf (0-5) H 04/02/16 17:28 Urine WBC Clumps Few /hpf (None) H 04/02/16 17:28 Ur Squamous Epith Cells 6 /hpf (0-4) H 04/02/16 17:28 Hyaline Casts 3 /lpf (0-2) H 04/02/16 17:28 Urine Mucus Rare /hpf (None) H 04/02/16 17:28 Microbiology 04/02/16 15:33 Blood Blood Culture - Preliminary No Growth after 48 hours 04/02/16 17:28 Urine,Voided Urine Culture - Preliminary Assessment and Plan (1) Bladder prolapse Status: Acute (2) UTI (urinary tract infection) Narrative/Plan: 85-year-old female has a known history of rectocele and cystocele. There was contemplation for some surgical intervention she a myocardial infarction this last November. The pessary ring was used. She was having some urinary retention around that event. This then apparently improved. It is not clear that she is having ongoing difficulties with urinary retention. She follows with urology in the [place] area. If this time there is evidence of pseudomonas aeruginosa in her urine that is quinolone resistant. And consequently intra-venous antibiotic therapy was ceftazadime will be utilized. This will give us maximum penetration of the urinary system. If he evidence of negative blood cultures and PICC line can be placed and recently made for outpatient intravenous antibiotic therapy Personally she is quite calm and cooperative at this time. There is notation that when she is ill she can be very aggressive. She does not have evidence of maris sepsis this point time. But does have evidence of acute renal failure which is now resolved with her rehydration. She has been maintained for her dementia and this should continue. Remains calm Status: Acute (3) Acute renal failure Status: Acute
[2016-04-05] MEDS: ACETAMINOPHEN TAB 325 MG TAB PO PRN ×2 (01:11→08:13)
[2016-04-05] MEDS: SODIUM CHLORIDE 0.9% 1,000 ML IV SCH ×2 (05:34→16:27)
[2016-04-05] MEDS: LEVOTHYROXINE 88 MCG TAB PO SCH (06:49)
[2016-04-05] MEDS: FENOFIBRATE 160 MG TAB PO SCH (08:19)
[2016-04-05] MEDS: CHOLECALCIFEROL 1,000 UNIT TAB PO SCH (08:19)
[2016-04-05] MEDS: amLODIPine 5 MG TAB PO SCH (08:19)
[2016-04-05] MEDS: BRIMONIDINE TARTRATE 0.2% DROPS 5 ML BTL RIGHT EYE SCH ×2 (08:19→21:15)
[2016-04-05] MEDS: LISINOPRIL 20 MG TAB PO SCH ×2 (08:19→21:15)
[2016-04-05] MEDS: METOPROLOL TARTRATE 50 MG TAB PO SCH (08:19)
[2016-04-05] MEDS: PANTOPRAZOLE 40 MG TABLET PO SCH (08:19)
[2016-04-05] MEDS: MEMANTINE 5 MG TAB PO SCH (08:19)
[2016-04-05] MEDS: RIVASTIGMINE 9.5MG/24HR PATCH TRANSDERM SCH (08:19)
[2016-04-05] MEDS: CALCIUM CARB-VIT D 500MG-200UN 1 EACH TAB PO SCH (11:18)
[2016-04-05] MEDS: traMADol 50 MG TAB PO PRN ×2 (11:44→19:02)
--- NOTE | 2016-04-05 12:07 | P.PN ---
Subjective Prior to admission and outpatient care patient was found to have urine cultures Pseudomonas aeruginosa that resistant to any oral antibiotics quinolone resistant. Discussed case with Dr. Augustine Bradshaw recommended IV therapy. Patient was admitted for IV therapy hopeful PICC line for home care. Patient was complaining of chest pain this morning does have history of ME patient was quiet and appeared mildly depressed has been in attendance EKG and enzymes ordered. Hopeful that patient can have him PICC line initiated for home therapy Objective - Vital Signs Vital signs: Vital Signs Temp 97.0 F L 04/05/16 07:00 Pulse 62 04/05/16 07:00 Resp 18 04/05/16 07:00 BP 152/80 04/05/16 07:00 Pulse Ox 98 04/05/16 07:00 - Constitutional General appearance: Present: mild distress - EENT Eyes: Present: PERRLA ENT: Present: hard of hearing Ears: bilateral: normal - Neck Neck: Present: normal ROM - Respiratory Respiratory: bilateral: CTA - Cardiovascular Rhythm: regular - Gastrointestinal General gastrointestinal: Present: soft - Integumentary Integumentary: Present: normal - Neurologic Neurologic: Present: CNII-XII intact - Musculoskeletal Musculoskeletal: Present: generalized weakness - Psychiatric Psychiatric Comment(s): Patient mildly confused depressed affect today - Labs CBC & Chem 7: 04/04/16 08:19 04/04/16 08:19 Assessment and Plan Plan: Assessment Urinary tract infection pseudomonas aeruginosa resistant to quinolone Bladder prolapse with pessary History of TIA History of dementia History of ME and hypertension History of glaucoma History of aortic abdominal aneurysm repair thoracic aneurysm repair Prolapsed rectum Thyroid disorder Frequent urinary tract infections acute renal failure resolved Chest pain Plan Continue consultation with Dr. Bradshaw hopeful candidate for PICC line for home therapy EKG and enzymes ordered for chest pain
[2016-04-05 12:44] LABS: Creatine Kinase MB 0.5 ng/mL (0.0-2.4); Troponin I 0.012 ng/mL (0.000-0.034)
[2016-04-05] MEDS: ATORVASTATIN 10 MG TAB PO SCH (21:14)
[2016-04-05] MEDS: QUEtiapine 25 MG TAB PO SCH (21:16)
--- NOTE | 2016-04-05 23:14 | P.PN ---
Subjective Principal diagnosis: Urinary tract infection 85-year-old female who has history of [facility] a known history of recto[facility] and cystocele. In 2015 had a myocardial infarction was treated medically. She's had ongoing difficulties with her urinary system and follows with urology in the [place] area. The pessary ring was placed. In November 2015 she was having some difficulty with urinary retention. Eventually she had improvement. She is at this time within that she felt very poorly . She had the sudden onset of what appears to be chilled and rigor. In the days prior to that she was having some other symptoms and there were concern for urinary infection and constantly urinalysis and culture were sent. If this is comeback with evidence of drug- resistant pathogens the patient was brought in the hospital and infectious diseases consultation was requested. At this time this pleasant woman who is a poor historian relates that she's feeling better tonight. She is living at the [facility] and chills have improved. At this time she denying significant headache chest pain abdominal pain nausea or emesis. She did have urinary symptoms and they are apparently chronic does have some urinary incontinence and was having some discomfort. Patient is remaining pleasantly confused. She's complaining of some itching to her back. Improved today Objective - Vital Signs Vital signs: Vital Signs Temp 97.7 F 04/05/16 22:36 Pulse 69 04/05/16 22:36 Resp 17 04/05/16 22:36 BP 141/71 04/05/16 22:36 Pulse Ox 97 04/05/16 22:36 Intake & Output 04/05/16 04/05/16 04/06/16 06:59 18:59 06:59 Other: Voiding Method Bedside Commode # Voids 7 2 # Bowel Movements 3 - Exam 85-year-old woman who is quite comfortable at this time. Was somewhat difficult to arouse but when she was awake was conversational although poor content she was pleasant. Not aggressive or agitated HEENT: Anicteric conjunctiva are pink and moist nasal mucosa grossly intact without significant lesions, there is no thrush. Oral mucosa slightly dry Neck: The neck is supple without significant lymphadenopathy or thyromegaly. Lungs: Good bilateral air entry without significant crackles or wheezing. There is no significant bronchial sounds. There is no egophony or dullness. Heart: Irregular with an audible S1 and S2 no S3 soft S4 no murmur click or rub Abdomen: Positive bowel sounds soft and nontender without palpable masses or organomegaly. There was no guarding or rebound. No tenderness over the bladder no flank tenderness Extremities: The upper extremities have excellent pulses they are symmetric, no significant petechiae or telangiectasia. No splinter hemorrhages were noted. The lower extremities are free from significant edema. The peripheral pulses were 2+ and symmetric. Neuro: Arousable oriented to person and place was aware that she was in the hospital. Follows simple commands Skin: Patient complains of pruritus but no obvious rash is noted on her back where she was complaining of itching. - Labs CBC & Chem 7: 04/04/16 08:19 04/04/16 08:19 Labs: Laboratory Results WBC 6.1 k/uL (3.8-10.6) 04/04/16 08:19 RBC 3.99 m/uL (3.80-5.40) 04/04/16 08:19 Hgb 11.0 gm/dL (11.4-16.0) L 04/04/16 08:19 Hct 35.5 % (34.0-46.0) 04/04/16 08:19 MCV 89.1 fL (80.0-100.0) 04/04/16 08:19 MCH 27.6 pg (25.0-35.0) 04/04/16 08:19 MCHC 31.0 g/dL (31.0-37.0) 04/04/16 08:19 RDW 14.7 % (11.5-15.5) 04/04/16 08:19 Plt Count 145 k/uL (150-450) L 04/04/16 08:19 Neutrophils % 64 % 04/03/16 08:15 Lymphocytes % 20 % 04/03/16 08:15 Monocytes % 7 % 04/03/16 08:15 Eosinophils % 7 % 04/03/16 08:15 Basophils % 1 % 04/03/16 08:15 Neutrophils # 4.1 k/uL (1.3-7.7) 04/03/16 08:15 Lymphocytes # 1.3 k/uL (1.0-4.8) 04/03/16 08:15 Monocytes # 0.4 k/uL (0-1.0) 04/03/16 08:15 Eosinophils # 0.4 k/uL (0-0.7) 04/03/16 08:15 Basophils # 0.1 k/uL (0-0.2) 04/03/16 08:15 Sodium 144 mmol/L (137-145) 04/04/16 08:19 Potassium 3.8 mmol/L (3.5-5.1) 04/04/16 08:19 Chloride 107 mmol/L (98-107) 04/04/16 08:19 Carbon Dioxide 26 mmol/L (22-30) 04/04/16 08:19 Anion Gap 11 mmol/L 04/04/16 08:19 BUN 20 mg/dL (7-17) H 04/04/16 08:19 Creatinine 0.88 mg/dL (0.52-1.04) 04/04/16 08:19 Est GFR (MDRD) Af Amer >60 (>60 ml/min/1.73 sqM) 04/04/16 08:19 Est GFR (MDRD) Non-Af >60 (>60 ml/min/1.73 sqM) 04/04/16 08:19 Glucose 137 mg/dL (74-99) H 04/04/16 08:19 Plasma Lactic Acid Mark 1.0 mmol/L (0.7-2.0) 04/02/16 15:33 Calcium 9.5 mg/dL (8.4-10.2) 04/04/16 08:19 Magnesium 1.7 mg/dL (1.6-2.3) 04/03/16 08:15 Total Bilirubin 0.8 mg/dL (0.2-1.3) 04/03/16 08:15 AST 30 U/L (14-36) 04/03/16 08:15 ALT 30 U/L (9-52) 04/03/16 08:15 Alkaline Phosphatase 37 U/L (38-126) L 04/03/16 08:15 Total Creatine Kinase 22 U/L (30-135) L 04/05/16 11:47 CK-MB (CK-2) 0.5 ng/mL (0.0-2.4) 04/05/16 11:47 CK-MB (CK-2) Rel Index 2.3 04/05/16 11:47 Troponin I 0.012 ng/mL (0.000-0.034) 04/05/16 11:47 Total Protein 7.0 g/dL (6.3-8.2) 04/03/16 08:15 Albumin 4.0 g/dL (3.5-5.0) 04/03/16 08:15 Urine Color Yellow 04/02/16 17:28 Urine Appearance Cloudy (Clear) H 04/02/16 17:28 Urine pH 6.5 (5.0-8.0) 04/02/16 17:28 Ur Specific [place] 1.013 (1.001-1.035) 04/02/16 17:28 Urine Protein Trace (Negative) H 04/02/16 17:28 Urine Glucose (UA) Negative (Negative) 04/02/16 17:28 Urine Ketones Negative (Negative) 04/02/16 17:28 Urine Blood Trace (Negative) H 04/02/16 17:28 Urine Nitrate Positive (Negative) H 04/02/16 17:28 Urine Bilirubin Negative (Negative) 04/02/16 17:28 Urine Urobilinogen <2.0 mg/dL (<2.0) 04/02/16 17:28 Ur Leukocyte Esterase Large (Negative) H 04/02/16 17:28 Urine RBC 10 /hpf (0-5) H 04/02/16 17:28 Urine WBC >182 /hpf (0-5) H 04/02/16 17:28 Urine WBC Clumps Few /hpf (None) H 04/02/16 17:28 Ur Squamous Epith Cells 6 /hpf (0-4) H 04/02/16 17:28 Hyaline Casts 3 /lpf (0-2) H 04/02/16 17:28 Urine Mucus Rare /hpf (None) H 04/02/16 17:28 Microbiology 04/02/16 15:33 Blood Blood Culture - Preliminary No Growth after 72 hours 04/02/16 17:28 Urine,Voided Urine Culture - Final Pseudomonas aeruginosa Pseudomonas aeruginosa#2 Assessment and Plan (1) Bladder prolapse Status: Acute (2) UTI (urinary tract infection) Narrative/Plan: 85-year-old female has a known history of rectocele and cystocele. There was contemplation for some surgical intervention she a myocardial infarction this last November. The pessary ring was used. She was having some urinary retention around that event. This then apparently improved. It is not clear that she is having ongoing difficulties with urinary retention. She follows with urology in the [place] area. If this time there is evidence of pseudomonas aeruginosa in her urine that is quinolone resistant. And consequently intra-venous antibiotic therapy was ceftazadime will be utilized. This will give us maximum penetration of the urinary system. With evidence of negative blood cultures and PICC line will be placed in the morning and referral made for outpatient intravenous antibiotic therapy Personally she is quite calm and cooperative at this time. There is notation that when she is ill she can be very aggressive. She does not have evidence of maris sepsis this point time. But does have evidence of acute renal failure which is now resolved with her rehydration. She has been treated for her dementia and this should continue. Remains calm Status: Acute (3) Acute renal failure Status: Acute
[2016-04-06] MEDS: SODIUM CHLORIDE 0.9% 1,000 ML IV SCH ×2 (05:44→14:29)
[2016-04-06] MEDS: LEVOTHYROXINE 88 MCG TAB PO SCH (06:36)
[2016-04-06] MEDS: ACETAMINOPHEN TAB 325 MG TAB PO PRN ×2 (07:38→15:24)
[2016-04-06] MEDS: RIVASTIGMINE 9.5MG/24HR PATCH TRANSDERM SCH (07:39)
[2016-04-06] MEDS: amLODIPine 5 MG TAB PO SCH (07:39)
[2016-04-06] MEDS: BRIMONIDINE TARTRATE 0.2% DROPS 5 ML BTL RIGHT EYE SCH (07:39)
[2016-04-06] MEDS: FENOFIBRATE 160 MG TAB PO SCH (07:39)
[2016-04-06] MEDS: PANTOPRAZOLE 40 MG TABLET PO SCH (07:39)
[2016-04-06] MEDS: MEMANTINE 5 MG TAB PO SCH (07:40)
[2016-04-06] MEDS: METOPROLOL TARTRATE 50 MG TAB PO SCH (07:40)
[2016-04-06] MEDS: CHOLECALCIFEROL 1,000 UNIT TAB PO SCH (07:40)
[2016-04-06] MEDS: LISINOPRIL 20 MG TAB PO SCH (07:40)
[2016-04-06 07:59] VITALS: RESP 16
[2016-04-06 08:49] LABS: CH 27.8; CHCM 31.8; HCT 35.9 % (34.0-46.0); HDW 2.11; HGB 11.6 gm/dL (11.4-16.0); MCH 28.3 pg (25.0-35.0); MCHC 32.2 g/dL (31.0-37.0); MCV 87.8 fL (80.0-100.0); Mean Platelet Volume 7.5; RBC 4.09 m/uL (3.80-5.40); RDW 14.5 % (11.5-15.5); WBC 6.6 k/uL (3.8-10.6)
[2016-04-06 09:18] LABS: Anion Gap 11 mmol/L; Blood Urea Nitrogen 18 mg/dL (7-17); Calcium 9.8 mg/dL (8.4-10.2); Carbon Dioxide 26 mmol/L (22-30); Chloride 106 mmol/L (98-107); Glucose 108 mg/dL (74-99); Non-African American GFR(MDRD) >60 (>60 ml/min/1.73 sqM); Sodium 143 mmol/L (137-145)
[2016-04-06 09:39] LABS: Potassium 4.2 mmol/L (3.5-5.1)
[2016-04-06] MEDS ORDERED: LIDOCAINE 2% INJ 20 MG/ML (20 ML MDV) ONE (10:43)
[2016-04-06] MEDS ORDERED: LIDOCAINE 2% INJ 20 MG/ML SQ ONE (10:49)
--- NOTE | 2016-04-06 11:36 | IR ---
EXAMINATION TYPE: IR cvc insert >=5 years DATE OF EXAM: 04/06/2016 11:06 AM COMPARISON: None CLINICAL HISTORY: Infection Needs long-term intravenous access for antibiotics. PROCEDURE: After informed consent, the skin overlying the left brachial vein was localized with ultrasound and n oted to be compressible and patent. An ultrasound image was obtained and submitted on the patient's chart. The overlying skin was prepped and draped and Lidocaine was used for local anesthesia. A ski n inés was made with a scalpel. Access was gained to the vein under ultrasound guidance with a 21 ga uge needle and a 0.018 inch wire was advanced. Access site was dilated with Peel-Away sheath and cat heter tailored to the appropriate length and advanced such that the distal tip is at the cavoatrial j unction. Spot image was obtained verifying placement. Catheter was fixed to the skin with suture an d a sterile dressing was placed following hemostasis. Catheter was aspirated and flushed with saline . Patient was discharged in stable condition without complication. Maximal barrier technique is util ized. Ultrasound image is documented on the chart. Ultrasound used with sterile technique. Fluoro time and fluoroscopic images submitted to document procedure: 12 intraoperative C-arm images d ocument the procedure. 1.5 minutes fluoroscopy time IMPRESSION: STATUS POST ULTRASOUND AND FLUOROSCOPIC GUIDED PICC LINE PLACEMENT, READY FOR USE. THIS PROCEDURE WAS PERFORMED BY THE UNDERSIGNED.
[2016-04-06] MEDS: traMADol 50 MG TAB PO PRN (12:30)
[2016-04-06] MEDS: CALCIUM CARB-VIT D 500MG-200UN 1 EACH TAB PO SCH (13:21)
[2016-04-06 16:09] VITALS: BP 137/81; TEMP 98.4
[2016-04-06 19:27] VITALS: PULSE 63
--- NOTE | 2016-04-06 23:18 | P.PN ---
Subjective Principal diagnosis: Urinary tract infection 85-year-old female who has history of dementia [facility] of rect[facility] and cystocele. In 2015 had a myocardial infarction was treated medically. She's had ongoing difficulties with her urinary system and follows with urology in the [place] area. The pessary ring was placed. In November 2015 she was having some difficulty with urinary retention. Eventually she had improvement. She is at this time within that she felt very poorly . She had the sudden onset of what appears to be chilled and rigor. In the days prior to that she was having some other symptoms and there were concern for urinary infection and constantly urinalysis and culture were sent. If this is comeback with evidence of drug- resistant pathogens the patient was brought in the hospital and infectious diseases consultation was requested. At this time this pleasant woman who is a poor historian relates that she's feeling better tonight. She is living at the [facility] and chills have improved. At this time she denying significant headache chest pain abdominal pain nausea or emesis. She did have urinary symptoms and they are apparently chronic does have some urinary incontinence and was having some discomfort. Patient is remaining pleasantly confused. the prior rash is completely resolved , is anxious to go home Objective - Vital Signs Vital signs: Vital Signs Temp 98.4 F 04/06/16 15:00 Pulse 63 04/06/16 19:00 Resp 16 04/06/16 15:00 BP 137/81 04/06/16 15:00 Pulse Ox 96 04/06/16 15:00 Intake & Output 04/06/16 04/06/16 04/07/16 06:59 18:59 06:59 Intake Total 1500 Balance 1500 Intake: Intake, IV Titration 100 Amount cefTAZidime 2 gm In 100 Sodium Chloride 0.9% 100 ml @ 100 mls/hr IVPB Q12HR [facility] Rx#:[id number] Oral 1400 Other: Voiding Method Bedside Commode Incontinent Bedside Commode # Voids 1 3 - Exam 85-year-old woman who is quite comfortable at this time. Was somewhat difficult to arouse but when she was awake was conversational although poor content she was pleasant. Not aggressive or agitated HEENT: Anicteric conjunctiva are pink and moist nasal mucosa grossly intact without significant lesions, there is no thrush. Oral mucosa slightly dry Neck: The neck is supple without significant lymphadenopathy or thyromegaly. Lungs: Good bilateral air entry without significant crackles or wheezing. There is no significant bronchial sounds. There is no egophony or dullness. Heart: Irregular with an audible S1 and S2 no S3 soft S4 no murmur click or rub Abdomen: Positive bowel sounds soft and nontender without palpable masses or organomegaly. There was no guarding or rebound. No tenderness over the bladder no flank tenderness Extremities: The upper extremities have excellent pulses they are symmetric, no significant petechiae or telangiectasia. No splinter hemorrhages were noted. The lower extremities are free from significant edema. The peripheral pulses were 2+ and symmetric. Neuro: Arousable oriented to person and place was aware that she was in the hospital. Follows simple commands Skin: Patient complains of pruritus but no obvious rash is noted on her back where she was complaining of itching. - Labs CBC & Chem 7: 04/06/16 08:01 04/06/16 08:01 Labs: Abnormal Lab Results - Last 24 Hours (Table) 04/06/16 Range/Units 08:01 BUN 18 H (7-17) mg/dL Glucose 108 H (74-99) mg/dL Laboratory Results WBC 6.6 k/uL (3.8-10.6) 04/06/16 08:01 RBC 4.09 m/uL (3.80-5.40) 04/06/16 08:01 Hgb 11.6 gm/dL (11.4-16.0) 04/06/16 08:01 Hct 35.9 % (34.0-46.0) 04/06/16 08:01 MCV 87.8 fL (80.0-100.0) 04/06/16 08:01 MCH 28.3 pg (25.0-35.0) 04/06/16 08:01 MCHC 32.2 g/dL (31.0-37.0) 04/06/16 08:01 RDW 14.5 % (11.5-15.5) 04/06/16 08:01 Plt Count 152 k/uL (150-450) 04/06/16 08:01 Neutrophils % 64 % 04/03/16 08:15 Lymphocytes % 20 % 04/03/16 08:15 Monocytes % 7 % 04/03/16 08:15 Eosinophils % 7 % 04/03/16 08:15 Basophils % 1 % 04/03/16 08:15 Neutrophils # 4.1 k/uL (1.3-7.7) 04/03/16 08:15 Lymphocytes # 1.3 k/uL (1.0-4.8) 04/03/16 08:15 Monocytes # 0.4 k/uL (0-1.0) 04/03/16 08:15 Eosinophils # 0.4 k/uL (0-0.7) 04/03/16 08:15 Basophils # 0.1 k/uL (0-0.2) 04/03/16 08:15 Sodium 143 mmol/L (137-145) 04/06/16 08:01 Potassium 4.2 mmol/L (3.5-5.1) 04/06/16 08:01 Chloride 106 mmol/L (98-107) 04/06/16 08:01 Carbon Dioxide 26 mmol/L (22-30) 04/06/16 08:01 Anion Gap 11 mmol/L 04/06/16 08:01 BUN 18 mg/dL (7-17) H 04/06/16 08:01 Creatinine 0.75 mg/dL (0.52-1.04) 04/06/16 08:01 Est GFR (MDRD) Af Amer >60 (>60 ml/min/1.73 sqM) 04/06/16 08:01 Est GFR (MDRD) Non-Af >60 (>60 ml/min/1.73 sqM) 04/06/16 08:01 Glucose 108 mg/dL (74-99) H 04/06/16 08:01 Plasma Lactic Acid Mark 1.0 mmol/L (0.7-2.0) 04/02/16 15:33 Calcium 9.8 mg/dL (8.4-10.2) 04/06/16 08:01 Magnesium 1.7 mg/dL (1.6-2.3) 04/03/16 08:15 Total Bilirubin 0.8 mg/dL (0.2-1.3) 04/03/16 08:15 AST 30 U/L (14-36) 04/03/16 08:15 ALT 30 U/L (9-52) 04/03/16 08:15 Alkaline Phosphatase 37 U/L (38-126) L 04/03/16 08:15 Total Creatine Kinase 22 U/L (30-135) L 04/05/16 11:47 CK-MB (CK-2) 0.5 ng/mL (0.0-2.4) 04/05/16 11:47 CK-MB (CK-2) Rel Index 2.3 04/05/16 11:47 Troponin I 0.012 ng/mL (0.000-0.034) 04/05/16 11:47 Total Protein 7.0 g/dL (6.3-8.2) 04/03/16 08:15 Albumin 4.0 g/dL (3.5-5.0) 04/03/16 08:15 Urine Color Yellow 04/02/16 17:28 Urine Appearance Cloudy (Clear) H 04/02/16 17:28 Urine pH 6.5 (5.0-8.0) 04/02/16 17:28 Ur Specific [place] 1.013 (1.001-1.035) 04/02/16 17:28 Urine Protein Trace (Negative) H 04/02/16 17:28 Urine Glucose (UA) Negative (Negative) 04/02/16 17:28 Urine Ketones Negative (Negative) 04/02/16 17:28 Urine Blood Trace (Negative) H 04/02/16 17:28 Urine Nitrate Positive (Negative) H 04/02/16 17:28 Urine Bilirubin Negative (Negative) 04/02/16 17:28 Urine Urobilinogen <2.0 mg/dL (<2.0) 04/02/16 17:28 Ur Leukocyte Esterase Large (Negative) H 04/02/16 17:28 Urine RBC 10 /hpf (0-5) H 04/02/16 17:28 Urine WBC >182 /hpf (0-5) H 04/02/16 17:28 Urine WBC Clumps Few /hpf (None) H 04/02/16 17:28 Ur Squamous Epith Cells 6 /hpf (0-4) H 04/02/16 17:28 Hyaline Casts 3 /lpf (0-2) H 04/02/16 17:28 Urine Mucus Rare /hpf (None) H 04/02/16 17:28 Microbiology 01/16/17 15:33 Blood Blood Culture - Preliminary No Growth after 96 hours 04/02/16 17:28 Urine,Voided Urine Culture - Final Pseudomonas aeruginosa Pseudomonas aeruginosa#2 Assessment and Plan (1) Bladder prolapse Status: Acute (2) UTI (urinary tract infection) Narrative/Plan: 85-year-old female has a known history of rectocele and cystocele. There was contemplation for some surgical intervention she a myocardial infarction this last November. The pessary ring was used. She was having some urinary retention around that event. This then apparently improved. It is not clear that she is having ongoing difficulties with urinary retention. She follows with urology in the [place] area. If this time there is evidence of pseudomonas aeruginosa in her urine that is quinolone resistant. And consequently intra-venous antibiotic therapy was ceftazadime will be utilized. This will give us maximum penetration of the urinary system. With evidence of negative blood cultures and PICC line will be placed in the morning and referral made for outpatient intravenous antibiotic therapy, with ceftazidime 2 jerardo IV piggyback every 12 hours. I was informed that the home care and insurance would not Be able to arrange her home IV antibiotic therapy. [facility] when the insurance issues can be resolved. Status: Acute (3) Acute renal failure Status: Acute
--- NOTE | 2016-04-07 12:20 | DS ---
DATE OF ADMISSION: 04/05/2016 DATE OF DISCHARGE: 04/06/2016 I am covering for Dr. Nicole. FINAL DIAGNOSES: 1. Urinary tract infection with pseudomonas aeruginosa resistant to quinolones. 2. Bladder prolapse with pessary. 3. History of transient ischemic attack. 4. History of dementia. 5. History of myocardial infarction. 6. History of hypertension. 7. History of glaucoma. 8. History of abdominal aortic aneurysm and repair of thoracic aneurysm repair. 9. History of cholecystectomy. 10. History of hypothyroidism. 11. History of frequent urinary tract infections. 12. Acute renal failure, possibly prerenal. 13. Chest pain, improved. DISCHARGE DISPOSITION: The patient will be discharged in a stable condition with guarded prognosis. HISTORY OF PRESENT ILLNESS: This is an 78 past medical history of multiple medical problems was admitted with features of urinary tract infection. The patient had Pseudomonas growing from the cultures, resistant to quinolones. Dr. Bradshaw saw the patient, recommended PICC line and IV antibiotics and outpatient treatment. Otherwise, the patient improved significantly. On exam, vitals are stable. CARDIOVASCULAR SYSTEM: S1, S2 muffled. ABDOMEN: Soft. NERVOUS SYSTEM: No focal deficits. The patient is being discharged in stable condition with guarded prognosis, with the following instructions and recommendations. DIET: Cardiac diet. FOLLOWUP: 1. Follow up with Dr. Nicole in 2 to 3 days. 2. Follow up with Dr. Bradshaw as recommended. MEDICATIONS: 1. Tylenol 650 every 6 p.r.n. 2. Lipitor 10 mg at bedtime. 3. Alphagan 0.2% right eye b.i.d. 4. Calcium carbonate 1 tablet p.o. daily. 5. Vitamin D3, 5000 daily. 6. Fenofibrate 134 mg p.o. daily. 7. Beatrice 180 mg p.o. daily. 8. Glucosamine 1 tablet p.o. daily. 9. HydroDIURIL 12.5 mg p.o. daily. 10. Ativan 1 mg p.o. t.i.d. p.r.n. 11. Synthroid 88 mcg p.o. daily. 12. Lisinopril 20 mg p.o. b.i.d. 13. Antivert 12.5 mg p.o. t.i.d. 14. Namenda 5 mg p.o. daily. 15. Lopressor 50 mg p.o. daily. 16. Prilosec 40 mg p.o. daily. 17. Seroquel 12.5 mg at bedtime. 18. Rivistigmine 9.5 mg one patch daily. 19. Norvasc 5 mg p.o. daily. Once again, the patient is being discharged in stable condition with guarded prognosis.
== END 2016-04-06 20:20 | disposition home health service (06) | DRG 689 ==
LOC: EC 14:26 → INTOOBSV 16:18 → 4MS4W 16:18 → OBSVTOIN 04-05 11:51
PROVIDERS: ADMIT Family Medicine; ATTEND Family Medicine
PROC: 02HV33Z Insertion of Infusion Device into Superior Vena Cava, Percutaneous Approach (ICD-10-PCS; principal; 2016-04-06 10:30)
DX: N39.0 Urinary tract infection, site not specified (principal); G92 Toxic encephalopathy; N17.9 Acute kidney failure, unspecified; B96.5 Pseudomonas (aeruginosa) (mallei) (pseudomallei) as the cause of diseases classified elsewhere; F03.90 Unspecified dementia, unspecified severity, without behavioral disturbance, psychotic disturbance, mood disturbance, and anxiety; E11.9 Type 2 diabetes mellitus without complications; I10 Essential (primary) hypertension; E03.9 Hypothyroidism, unspecified; E78.5 Hyperlipidemia, unspecified; H40.9 Unspecified glaucoma; H91.90 Unspecified hearing loss, unspecified ear; I25.2 Old myocardial infarction; K62.3 Rectal prolapse; M41.9 Scoliosis, unspecified; R32 Unspecified urinary incontinence; N81.10 Cystocele, unspecified; K57.90 Diverticulosis of intestine, part unspecified, without perforation or abscess without bleeding; R07.9 Chest pain, unspecified; Z87.440 Personal history of urinary (tract) infections; Z87.891 Personal history of nicotine dependence; Z79.899 Other long term (current) drug therapy
CPT/HCPCS: 36415; 36569; 76937; 77001; 80048; 80053; 81001; 82550; 82553; 83605; 83735; 84484; 85025; 85027; 87040; 87077; 87086; 87186; 93005; 96361; 96365; 96366; 96367; 99284

== ENCOUNTER 2016-04-07 12:13 | Inpatient (IN) | payer MEDICARE ==
[2016-04-07] MEDS ORDERED: HYDROmorphone 1 MG/ML 1 ML SYRINGE IVP STA (12:37)
[2016-04-07] MEDS ORDERED: ACETAMINOPHEN IV (For NPO) 1,000 MG in SALINE 1 100ML.BAG IVPB STA (12:37)
--- NOTE | 2016-04-07 12:40 | ED ---
General Adult HPI - General Chief complaint: Neck Pain/Injury Stated complaint: pain Time Seen by Provider: 04/07/16 12:28 Source: patient, family, RN notes reviewed Mode of arrival: wheelchair Limitations: no limitations - History of Present Illness Initial comments: Patient is a pleasant 85-year-old female presenting to the emergency Department with complaints of discomfort. It is questionable whether or not patient had minimal discomfort this morning. Patient had significant discomfort following infusion of antibiotics just prior to arrival. Patient was in the pediatric unit obtaining her infusion at the time. Patient has severe discomfort of the left side of her neck. Patient states this does increase greatly with any movement. No history of any similar symptoms previously. Discomfort occurred while turning her neck. No direct trauma. No fevers. No chest pain. No arm pain or weakness. - Related Data Home Medications Medication Instructions Recorded Confirmed Fenofibrate,Micronized 134 mg PO DAILY@1200 12/11/15 04/07/16 [Fenofibrate] Hydrochlorothiazide [Hydrodiuril] 12.5 mg PO DAILY 12/11/15 04/07/16 Levothyroxine Sodium [Synthroid] 88 mcg PO DAILY 12/11/15 04/07/16 Lisinopril 20 mg PO BID 12/11/15 04/07/16 Memantine [Namenda] 5 mg PO QAM 12/11/15 04/07/16 Atorvastatin [Lipitor] 10 mg PO DAILY@1200 12/13/15 04/07/16 Calcium Carbonate/Vitamin D3 1 tab PO DAILY 12/13/15 04/07/16 [Calcium 600-Vit D3 200 Tablet] Cholecalciferol [Vitamin D3] 5,000 unit PO DAILY 12/13/15 04/07/16 Fexofenadine HCl [Beatrice Allergy] 180 mg PO QAM 12/13/15 04/07/16 Glucosamine HCl/Chondr Gómez A Na 1 tab PO QAM 12/13/15 04/07/16 [Osteo Bi-Flex Caplet] Meclizine [Antivert] 25 mg PO TID PRN 12/13/15 04/07/16 QUEtiapine [SEROquel] 12.5 mg PO HS 12/13/15 04/07/16 Rivastigmine 9.5MG/24Hr Patch 1 patch TRANSDERM DAILY 12/13/15 04/07/16 [Exelon 9.5MG/24Hr Patch] Brimonidine Tartrate [Alphagan P 1 drops RIGHT EYE BID 04/02/16 04/07/16 0.2% Ophth Soln] Omeprazole [PriLOSEC] 40 mg PO DAILY 04/02/16 04/07/16 amLODIPine [Norvasc] 5 mg PO DAILY@1200 04/02/16 04/07/16 Metoprolol Tartrate [Lopressor] 50 mg PO QAM 04/07/16 04/07/16 Oxybutynin Chloride [Ditropan] 5 mg PO BID 04/07/16 04/07/16 Previous Rx's Medication Instructions Recorded Acetaminophen Tab [Tylenol] 650 mg PO Q6HR PRN #0 tab 04/06/16 Ceftazidime [Fortaz] 2 gm IVPB Q12HR #5 vial 04/06/16 Allergies Allergy/AdvReac Type Severity Reaction Status Date / Time No Known Allergies Allergy Verified 04/07/16 12:17 Review of Systems ROS Statement: Those systems with pertinent positive or pertinent negative responses have been documented in the HPI. ROS Other: All systems not noted in ROS Statement are negative. Constitutional: Denies: fever Eyes: Denies: eye pain ENT: Denies: ear pain Respiratory: Denies: cough, dyspnea Cardiovascular: Denies: chest pain Endocrine: Denies: fatigue Gastrointestinal: Denies: abdominal pain Genitourinary: Denies: dysuria Musculoskeletal: Denies: back pain Skin: Denies: rash Neurological: Denies: headache, weakness Past Medical History Past Medical History: CVA/TIA, Dementia, Hearing Disorder / Deafness, Hyperlipidemia, Hypertension, Myocardial Infarction ([place]), Thyroid Disorder Additional Past Medical History / Comment(s): frequent UTI's, rectal prolapse, bladder prolapse-passary in place, HAS 3 AAA",TIA,RT EYE GLAUCOMA(MILD) BEING [place] ,SHINGLES 2006, DIVERTICULITIS,SCOLIOSIS,, BRUISES EASILY Last Myocardial Infarction Date:: History of Any Multi-Drug Resistant Organisms: None Reported Past Surgical History: Appendectomy, Cholecystectomy, Hysterectomy, Tonsillectomy Past Anesthesia/Blood Transfusion Reactions: No Reported Reaction Past Psychological History: No Psychological Hx Reported Additional Psychological History / Comment(s): IN PAST WHEN CONFUSED OR AGITATED PT HAS BITTEN MEDICAL STAFF OR STARTED YELLING AND THROWING THINGS . lives the [facility]. Daughter is local PA and is very involved in her care. Remote tobacco use no alcohol use no animal exposures. No experience no travel Smoking Status: Former smoker Past Alcohol Use History: None Reported Past Drug Use History: None Reported - Past Family History Mother Additional Family Medical History / Comment(s): aneurysm Father Family Medical History: No Reported History General Exam Limitations: no limitations General appearance: alert, in distress (Appears uncomfortable) Head exam: Present: atraumatic, normocephalic Eye exam: Present: normal appearance, PERRL Neck exam: Present: tenderness (Diffuse mild tenderness to the posterior and left neck with muscle spasm.) Respiratory exam: Present: normal lung sounds bilaterally Cardiovascular Exam: Present: regular rate, normal rhythm GI/Abdominal exam: Present: soft. Absent: tenderness Extremities exam: Present: normal inspection, full ROM. Absent: tenderness Back exam: Present: normal inspection. Absent: tenderness Neurological exam: Present: alert. Absent: motor sensory deficit Psychiatric exam: Present: normal affect, normal mood Skin exam: Absent: rash Course Vital Signs 04/07/16 12:17 Temperature 97.3 F L Pulse Rate 76 Respiratory 20 Rate Blood Pressure 227/109 EKG Findings - EKG Comments: EKG Findings:: Normal sinus rhythm 72. WV 172. QRS 110. QT 420. QTc 459. Left axis. Incomplete right bundle-branch block. Left anterior fascicular block. LVH with repolarization changes. Medical Decision Making - Medical Decision Making Patient reexamined and improved while resting still. Patient has severe discomfort still with movement. Patient is unable to ambulate. Family is not comfortable with discharge home. Case was discussed in detail with Dr. Stinson, who will admit for Dr. Nicole. - Radiology Data Radiology results: report reviewed (Computed tomography scan shows degenerative changes.) Disposition Clinical Impression: Strain of neck muscle, Ataxia Disposition: ADMITTED IP TO THIS HOSP
--- NOTE | 2016-04-07 14:08 | CT ---
EXAMINATION TYPE: CT cervical spine wo con DATE OF EXAM: 04/07/2016 1:40 PM COMPARISON: NONE HISTORY: Pain CT DLP: 280.5 mGycm Automated exposure control for dose reduction was used. TECHNIQUE: CT scan of the cervical spine is obtained without contrast, axial images are obtained, sa gittal and coronal reformatted images are also reviewed. FINDINGS: C5-6 disc space is narrowed. Milder disc space narrowing is present to the remainder of the cervical spine. Minimal retrolisthesis of C3 on C4 and C5 on C6 may be present. No spinal canal sten osis is present. Left foraminal stenosis due to uncovertebral joint hypertrophy and facet hypertrophy is present C4-5. Bilateral foraminal narrowing is present at C5-6 due to uncovertebral joint hypertr ophy. IMPRESSION: 1. Degenerative disc changes. No acute osseous abnormality is evident. 2. Foraminal narrowing discussed above
[2016-04-07] MEDS ORDERED: NALOXONE 0.4 MG/ML 1 ML VIAL IV PRN (16:25)
[2016-04-07] MEDS ORDERED: IBUPROFEN 400 MG TAB PO PRN (16:25)
[2016-04-07] MEDS ORDERED: ACETAMINOPHEN TAB 325 MG TAB PO PRN (16:25)
[2016-04-07] MEDS ORDERED: LISINOPRIL 20 MG TAB PO ONE (17:02)
[2016-04-07] MEDS ORDERED: amLODIPine 5 MG TAB PO STA (17:02)
[2016-04-07] MEDS ORDERED: METOPROLOL TARTRATE 50 MG TAB PO STA (17:02)
[2016-04-07] MEDS ORDERED: MECLIZINE 25 MG TAB PO PRN (17:03)
[2016-04-07 17:04] LABS: Basophils % (A) 1 %; CHCM 32.8; Eosinophils # (A) 0.3 k/uL (0-0.7); Eosinophils % (A) 4 %; HCT 34.2 % (34.0-46.0); HDW 2.22; HGB 11.4 gm/dL (11.4-16.0); Luc # (Auto) 0.12; Luc % (Auto) 2; Lymphocytes # (A) 1.2 k/uL (1.0-4.8); Lymphocytes % (A) 17 %; MCH 28.5 pg (25.0-35.0); MCHC 33.2 g/dL (31.0-37.0); MCV 85.8 fL (80.0-100.0); Mean Platelet Volume 7.7; Monocytes # (A) 0.4 k/uL (0-1.0); Monocytes % (A) 6 %; Neutrophils # (A) 5.1 k/uL (1.3-7.7); Neutrophils % (A) 72 %; RBC 3.98 m/uL (3.80-5.40); RDW 14.4 % (11.5-15.5); WBC 7.1 k/uL (3.8-10.6); WBC (Perox) 7.78
[2016-04-07 17:19] LABS: ALT 28 U/L (9-52); AST 29 U/L (14-36); Alkaline Phosphatase 39 U/L (38-126); Anion Gap 9 mmol/L; Blood Urea Nitrogen 18 mg/dL (7-17); Calcium 9.5 mg/dL (8.4-10.2); Carbon Dioxide 30 mmol/L (22-30); Chloride 103 mmol/L (98-107); Glucose 100 mg/dL (74-99); Non-African American GFR(MDRD) >60 (>60 ml/min/1.73 sqM); Potassium 3.5 mmol/L (3.5-5.1); Sodium 142 mmol/L (137-145); Total Bilirubin 0.7 mg/dL (0.2-1.3); Total Protein 6.4 g/dL (6.3-8.2)
[2016-04-07] MEDS: HYDROCHLOROTHIAZIDE 12.5 MG CAP PO SCH (17:55)
[2016-04-07 18:35] VITALS: BMI 23.0
[2016-04-07] MEDS: OXYBUTYNIN CHLORIDE 5 MG TAB PO SCH (20:09)
[2016-04-07] MEDS: BRIMONIDINE TARTRATE 0.2% DROPS 5 ML BTL RIGHT EYE SCH (20:09)
[2016-04-07] MEDS: QUEtiapine 25 MG TAB PO SCH (20:09)
[2016-04-07] MEDS: LISINOPRIL 20 MG TAB PO SCH (20:09)
[2016-04-08] MEDS: LEVOTHYROXINE 88 MCG TAB PO SCH (05:52)
[2016-04-08] MEDS: HYDROmorphone 1 MG/ML 1 ML SYRINGE IV PRN ×5 (08:35→20:17)
[2016-04-08] MEDS: LISINOPRIL 20 MG TAB PO SCH ×2 (08:55→20:06)
[2016-04-08] MEDS: METOPROLOL TARTRATE 50 MG TAB PO SCH (08:55)
[2016-04-08] MEDS ORDERED: NON-FORMULARY DRUG (Glucosamine Hcl/Chondr Su A Na [Osteo Bi-Flex Caplet] 1 TAB) PO SCH (09:00)
[2016-04-08] MEDS: HYDROCHLOROTHIAZIDE 12.5 MG CAP PO SCH (09:54)
[2016-04-08] MEDS: MEMANTINE 10 MG TAB PO SCH (09:54)
[2016-04-08] MEDS: RIVASTIGMINE 9.5MG/24HR PATCH TRANSDERM SCH (09:58)
[2016-04-08] MEDS: BRIMONIDINE TARTRATE 0.2% DROPS 5 ML BTL RIGHT EYE SCH ×2 (10:02→20:06)
--- NOTE | 2016-04-08 11:18 | P.OBCN ---
History of Present Illness Consult date: 04/08/16 Reason for consult: pelvic prolapse Chief complaint: Pessary stem in place, consult to assure proper placement. History of present illness: This is an 85-year-old white female 4 para 4003 status post with sounds like vaginal hysterectomy many years ago for benign reasons. Patient has a known history of rectocele as well as cystocele and is followed by Dr. Mahajan. An cubic pessary is in place, and is checked every 4-6 weeks. Patient is currently hospitalized for neck and left shoulder pain. She receives IV infusion of antibiotics for a resistant strain of pseudomonas UTI. Dr. Bradshaw of infectious disease is following. Upon admission, a small stem is noted intravaginally and consultation was requested to assure proper pessary placement. The patient has no pelvic complaints. Bowel movements are regular, soft and without pain. Past medical history is significant for recurrent aortic aneurysms, chronic hypertension, hypercholesterolemia and dementia. Dr. Neal Nicole is the patient 's primary care physician. Past surgical history is significant for vaginal hysterectomy many years ago for benign considerations, thoracic abdominal aortic repair, abdominal aortic aneurysm repair. ALLERGIES none known. Social history patient is , she has good family support and multiple family members at the bedside. There is no history of smoking alcohol or drug use. Current medications please see patient's chart for details. Past gynecologic history is significant for 4 vaginal deliveries, 3 living children. Patient has a known grade 4 rectocele as well as a grade 2-3 cystocele. 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 It was last checked approximate 4 weeks ago. Patient denies any unusual vaginal odor, no vaginal bleeding, no pelvic complaints. On exam this is a pleasant elderly female who appears to be in pain secondary to left shoulder issues. She is 5 foot 0 inches, 53.5 kg, vital signs are stable with a respiratory rate of 16, pulse 70, blood pressure 188/89, patient is afebrile. A full physical exam is neither requested nor performed. Targeted exam is limited to the pelvis. External genitalia appears age appropriate. There is a small Milex stem of a cube pessary noted in the vagina. There is no unusual vaginal odor, no bleeding, no drainage, no discharge. Pelvic exam is consistent with a well-placed cube pessary, no obvious cystocele or rectocele, no pain to pelvic examination. There is no evidence of infection. There is no vaginal bleeding. Impression: History of rectocele and cystocele, currently well palliated by the use of a cube pessary, followed by Dr. Mahajan. No evidence today of any issues in the pelvis or of the pessary. Plan: continue medical management per team. Patient may continue to follow with Dr. Mahajan as per her recommendations. Thank you for the consultation. Review of Systems Negative except as in HPI Past Medical History Past Medical History: CVA/TIA, Dementia, Hearing Disorder / Deafness, Hyperlipidemia, Hypertension, Myocardial Infarction ([place]), Thyroid Disorder Additional Past Medical History / Comment(s): frequent UTI's, rectal prolapse, bladder prolapse-passary in place, HAS 3 AAA",TIA,RT EYE GLAUCOMA(MILD) BEING [place] ,SHINGLES 2006, DIVERTICULITIS,SCOLIOSIS,, BRUISES EASILY Last Myocardial Infarction Date:: History of Any Multi-Drug Resistant Organisms: None Reported Past Surgical History: Appendectomy, Cholecystectomy, Hysterectomy, Tonsillectomy Additional Past Surgical History / Comment(s): partial thyroid removed Past Anesthesia/Blood Transfusion Reactions: No Reported Reaction Past Psychological History: No Psychological Hx Reported Additional Psychological History / Comment(s): IN PAST WHEN CONFUSED OR AGITATED PT HAS BITTEN MEDICAL STAFF OR STARTED YELLING AND THROWING THINGS . lives the [facility]. Daughter is local PA and is very involved in her care. Remote tobacco use no alcohol use no animal exposures. No experience no travel Smoking Status: Former smoker Past Alcohol Use History: None Reported Past Drug Use History: None Reported - Past Family History Mother Additional Family Medical History / Comment(s): aneurysm Father Family Medical History: No Reported History Medications and Allergies Home Medications Medication Instructions Recorded Confirmed Type Fenofibrate,Micronized 134 mg PO DAILY@1200 12/11/15 04/07/16 History [Fenofibrate] Hydrochlorothiazide [Hydrodiuril] 12.5 mg PO DAILY 12/11/15 04/07/16 History Levothyroxine Sodium [Synthroid] 88 mcg PO DAILY 12/11/15 04/07/16 History Lisinopril 20 mg PO BID 12/11/15 04/07/16 History Memantine [Namenda] 5 mg PO QAM 12/11/15 04/07/16 History Atorvastatin [Lipitor] 10 mg PO DAILY@1200 12/13/15 04/07/16 History Calcium Carbonate/Vitamin D3 1 tab PO DAILY 12/13/15 04/07/16 History [Calcium 600-Vit D3 200 Tablet] Cholecalciferol [Vitamin D3] 5,000 unit PO DAILY 12/13/15 04/07/16 History Fexofenadine HCl [Beatrice Allergy] 180 mg PO QAM 12/13/15 04/07/16 History Glucosamine HCl/Chondr Gómez A Na 1 tab PO QAM 12/13/15 04/07/16 History [Osteo Bi-Flex Caplet] Meclizine [Antivert] 25 mg PO TID PRN 12/13/15 04/07/16 History QUEtiapine [SEROquel] 12.5 mg PO HS 12/13/15 04/07/16 History Rivastigmine 9.5MG/24Hr Patch 1 patch TRANSDERM DAILY 12/13/15 04/07/16 History [Exelon 9.5MG/24Hr Patch] Brimonidine Tartrate [Alphagan P 1 drops RIGHT EYE BID 04/02/16 04/07/16 History 0.2% Ophth Soln] Omeprazole [PriLOSEC] 40 mg PO DAILY 04/02/16 04/07/16 History amLODIPine [Norvasc] 5 mg PO DAILY@1200 04/02/16 04/07/16 History Metoprolol Tartrate [Lopressor] 50 mg PO QAM 04/07/16 04/07/16 History Oxybutynin Chloride [Ditropan] 5 mg PO BID 04/07/16 04/07/16 History Allergies Allergy/AdvReac Type Severity Reaction Status Date / Time No Known Allergies Allergy Verified 04/07/16 12:17 Exam - Vital Signs Vital signs: Vital Signs Temp Pulse Pulse Resp BP BP Pulse Ox 04/08/16 08:00 98.5 F 70 16 188/89 97 04/08/16 04:00 18 04/08/16 00:00 18 04/07/16 23:36 66 18 160/87 96 04/07/16 20:00 18 04/07/16 19:31 98.3 F 66 18 161/104 96 04/07/16 17:53 82 18 181/98 100 01/21/17 17:17 98.2 F 77 20 187/91 95 Intake and Output 04/07/16 04/08/16 04/08/16 22:59 06:59 14:59 Other: Voiding Method Diaper Diaper # Voids 2 1 Weight 53.524 kg See my dictated notes. Results Result Diagrams: 04/07/16 16:54 04/07/16 16:54 Abnormal Lab Results - Last 24 Hours (Table) 04/07/16 04/07/16 Range/Units 16:54 16:54 Plt Count 145 L (150-450) k/uL BUN 18 H (7-17) mg/dL Glucose 100 H (74-99) mg/dL Assessment and Plan Plan: Continue RECORD TESTER care per Dr. Mahajan, patient's private gynecologic physician. Time with Patient: Greater than 30
[2016-04-08] MEDS ORDERED: CYCLOBENZAPRINE 5 MG TAB PO STA (11:20)
[2016-04-08] MEDS: PANTOPRAZOLE 40 MG TABLET PO SCH (12:23)
[2016-04-08] MEDS: CHOLECALCIFEROL 1,000 UNIT TAB PO SCH (12:23)
[2016-04-08] MEDS: CALCIUM CARB-VIT D 500MG-200UN 1 EACH TAB PO SCH (12:23)
[2016-04-08] MEDS: OXYBUTYNIN CHLORIDE 5 MG TAB PO SCH ×2 (12:34→21:23)
--- NOTE | 2016-04-08 12:54 | HP ---
DATE OF ADMISSION: DATE OF SERVICE: 04/07/2016 CHIEF COMPLAINT: Left-sided neck pain. HISTORY OF PRESENT ILLNESS: Mrs. Rose is an 85-year-old female with a known history of hypertension, hyperlipidemia, hypothyroidism, dementia, history of cerebrovascular accident/transient ischemic attack, frequent UTIs, and other multiple medical problems, was apparently getting antibiotic infusion in the hospital today. After completion of infusion patient was found to have significant left-sided neck pain and unable to move her neck and worsens with slight movement which made her to be taken to ER for further evaluation. Patient otherwise denied any trauma. No neck stiffness before in the morning today. Discomfort started in her neck. No complaints of chest pain. No short of breath. No fever. No headache or dizziness noted. Patient was in the ER. Patient had CT cervical spine that showed degenerative disc disease. No acute osseous abnormality is evident. Foramen narrowing is present as well, but no acute issues noted. EKG sinus rhythm. Patient currently admitted to the hospital for possible pain management. Patient was given a dose of Dilaudid, which improved her symptoms. REVIEW OF SYSTEMS: Patient denied any complaints of shortness of breath. No nausea, vomiting, abdominal pain. No diarrhea. No constipation. No history of head and neck pain. Otherwise the patient is a poor historian due to underlying dementia. Complete review of systems could not be obtained from the patient. PAST MEDICAL HISTORY: History of cerebrovascular accident/transient ischemic attack, dementia, hearing disorder/deafness, hyperlipidemia, hypertension, history of RI, hypothyroidism, recurrent urinary tract infection, rectal prolapse, bladder prolapse with pessary in place, had 3 abdominal aortic aneurysms, right eye glaucoma, history of shingles, diverticulosis, scoliosis. PAST SURGICAL HISTORY: Appendectomy, cholecystectomy, hysterectomy, tonsillectomy. No psychosocial history. SOCIAL HISTORY: Patient a former smoker, quit several years ago. Denied alcohol, denied IVDU. FAMILY HISTORY: Mother had aneurysm and father has no reported history. Home medication include: Fenofibrate, hydrochlorothiazide, Levothyroxine, Namenda, atorvastatin, calcium carbonate, Cholecalciferol, Beatrice, glucosamine chondroitin sulfate, meclizine, Seroquel, rivastigmine, brimonidine, omeprazole, amlodipine, metoprolol, oxybutynin, Tylenol, ceftazidime. ALLERGIES: No known drug allergies. Patient was discharged from the hospital a day before and was sent on IV ceftazidime for recurrent urinary tract infections. PHYSICAL EXAMINATION: An 85-year-old female lying in bed, awake, alert, oriented x1 to 2, no apparent distress at this time. VITALS: Blood pressure is 181/98, pulse is 82, respiratory rate 18, temperature afebrile, pulse ox 100% on room air. HEENT: Atraumatic, normocephalic. Neck is supple. No JVD. Patient does have significant pain with movement of the neck towards the left side. No thyromegaly. CVS: S1, S2 heard. No murmurs, no gallop, no rub. LUNGS: Bilateral air entry is present. No wheezing. No crackles. Nonlabored breathing. ABDOMEN: Soft, nontender. COGNOS REPORT DEVELOPER; Awake, alert and oriented x2. No focal deficits. Cranial nerves grossly intact. EXTREMITIES: No edema. Pulses palpable bilaterally. No clubbing or cyanosis. PSYCHIATRIC: Cooperative. LABORATORY DATA: WBC 7.1, hemoglobin 11.4, platelets 145. Sodium 142, potassium 3.5, chloride 103, bicarb 30. BUN 18, creatinine 0.7. Blood sugar is 100 and liver enzymes within normal limits. CT cervical spine showed degenerative disc disease with no acute osseous abnormality is noted. IMPRESSION: 1. Acute left-sided neck pain, possible neck muscle strain. Patient was given IV Dilaudid with improvement of her symptoms. We will continue to monitor closely and add muscle relaxants if needed. Continue with the pain management with Tylenol and Dilaudid IV as needed and ibuprofen. 2. Recent urinary tract infection with Pseudomonas. Currently getting ceftazidime IV infusion therapy as an outpatient. 3. Recurrent urinary tract infections. 4. Hypertension. 5. Hyperlipidemia. 6. Hypothyroidism. 7. Dementia. 8. History of rectal prolapse and bladder prolapse and pessary in place. 9. History of three abdominal aortic aneurysms. 10. Right eye glaucoma. 11. History of diverticulosis and diverticulitis. 12. Scoliosis. 13. History of cerebrovascular accident/transient ischemic attack. 14. Deafness/hearing disorder. DISCUSSION AND PLAN: An 85-year-old female admitted to the hospital with acute left-sided neck pain most likely musculoskeletal in origin. Will continue the pain management as discussed above. Continue the home medications and follow up closely. Further recommendations pending on clinical course. Patient does have multiple medical problems and comorbid conditions.
[2016-04-08] MEDS: amLODIPine 5 MG TAB PO SCH (13:16)
[2016-04-08] MEDS: FENOFIBRATE 160 MG TAB PO SCH (13:42)
[2016-04-08] MEDS: ATORVASTATIN 10 MG TAB PO SCH (13:42)
[2016-04-08] MEDS: diphenhydrAMINE 50 MG/ML 1 ML VIAL IVP PRN ×2 (14:08→20:49)
[2016-04-08] MEDS ORDERED: diphenhydrAMINE 50 MG/ML 1 ML VIAL IVP STA (16:15)
[2016-04-08] MEDS: SODIUM CHLORIDE 0.9% 1,000 ML IV SCH (16:27)
[2016-04-08] MEDS: KETOROLAC 30 MG/ML 1 ML VIAL IVP SCH (16:52)
[2016-04-08] MEDS: QUEtiapine 25 MG TAB PO SCH (20:06)
[2016-04-08] MEDS: CYCLOBENZAPRINE 10 MG TAB PO PRN (20:06)
[2016-04-08] MEDS ORDERED: HALOPERIDOL LACTATE 5 MG/ML 1 ML VIAL IM PRN (22:09)
[2016-04-09] MEDS: KETOROLAC 30 MG/ML 1 ML VIAL IVP SCH ×4 (00:23→18:56)
[2016-04-09] MEDS: LEVOTHYROXINE 88 MCG TAB PO SCH (06:46)
[2016-04-09] MEDS: RIVASTIGMINE 9.5MG/24HR PATCH TRANSDERM SCH (08:55)
[2016-04-09] MEDS: MEMANTINE 10 MG TAB PO SCH (10:28)
[2016-04-09] MEDS: OXYBUTYNIN CHLORIDE 5 MG TAB PO SCH ×2 (10:29→19:44)
[2016-04-09] MEDS: PANTOPRAZOLE 40 MG TABLET PO SCH (10:29)
[2016-04-09] MEDS: BRIMONIDINE TARTRATE 0.2% DROPS 5 ML BTL RIGHT EYE SCH ×2 (10:29→19:44)
[2016-04-09] MEDS: CHOLECALCIFEROL 1,000 UNIT TAB PO SCH ×2 (10:29→10:33)
[2016-04-09] MEDS: METOPROLOL TARTRATE 50 MG TAB PO SCH (10:30)
[2016-04-09] MEDS: CALCIUM CARB-VIT D 500MG-200UN 1 EACH TAB PO SCH (10:30)
[2016-04-09] MEDS: HYDROCHLOROTHIAZIDE 12.5 MG CAP PO SCH (10:30)
[2016-04-09] MEDS: LISINOPRIL 20 MG TAB PO SCH ×2 (10:30→19:45)
[2016-04-09] MEDS: CYCLOBENZAPRINE 10 MG TAB PO PRN ×2 (11:18→19:44)
[2016-04-09] MEDS: ATORVASTATIN 10 MG TAB PO SCH (14:15)
[2016-04-09] MEDS: FENOFIBRATE 160 MG TAB PO SCH (14:15)
[2016-04-09] MEDS: amLODIPine 5 MG TAB PO SCH (14:16)
[2016-04-09] MEDS: SODIUM CHLORIDE 0.9% 1,000 ML IV SCH ×2 (15:22→17:24)
--- NOTE | 2016-04-09 16:19 | PN ---
DATE OF SERVICE: 04/08/2016 INTERVAL HISTORY: Ms. Rose is an 85-year-old female with known history of multiple medical problems and frequent UTIs with pseudomonas, currently getting ceftazidime infusion. She was admitted to the hospital with severe left-sided neck pain and stiffness. CT of the neck could not identify any acute osseous abnormality. She is currently being treated for pain management and muscle relaxants. She will be continued on Ativan, Dilaudid and Flexeril at this time. As per discussion with the family, patient is considering palliative care at this time and comfort measures. Will continue the pain management. as above. ROS could not be obtained at this time Current medications are reviewed. PHYSICAL EXAMINATION: Nfmxcg-hverw-ldpt-old female lying in the bed. Awake, alert, oriented times 1 to 2. Appears to be in distress due to pain. VITALS: Blood pressure is 140/77. Pulse is 66, respiration 16, temperature afebrile, pulse ox 92% on room air. HEENT: Atraumatic, normocephalic. Neck is stiff; decreased motion due to pain with ( ) left-sided movement. CVS: S1, S2 heard. No murmurs. No gallop. LUNGS: Bilateral air entry present. No wheezing. No crackles. ABDOMEN: Soft, nontender. Bowel sounds present. HEAD TRIMMER: Awake, alert, oriented times 1 to 2. Appears to have no focal deficit. EXTREMITIES: No edema. Pulses palpable bilaterally. No clubbing or cyanosis. PSYCHIATRIC: Cooperative. LABORATORY DATA: Reviewed. IMPRESSION: 1. Acute left-sided neck pain; possible neck muscle strain. Continue the muscle relaxants, Toradol and Dilaudid. Continue the Ativan for anxiety. Will follow up closely. 2. Recent urinary tract infection with pseudomonas, currently getting ceftazidime IV infusion therapy as an outpatient. 3. Recurrent urinary tract infection. 4. Hypertension. 5. Hyperlipidemia. 6. Hypothyroidism. 7. Dementia. 8. History of rectal prolapse and bladder prolapse with pessary placement. 9. History of 3 abdominal aortic aneurysms. 10. Right eye glaucoma. 11. History of diverticulosis and diverticulitis. 12. Scoliosis. 13. History of cerebrovascular accident/transient ischemic attack. 14. Deafness and hearing disorder. 15. CODE STATUS: COMFORT MEASURES. Lqqsvh[age]lrefn-wehz-old female admitted to the hospital with left-sided neck pain and stiffness. Will continue the muscle relaxants and pain management. Due to underlying multiple medical problems and comorbid conditions and intractable pain, family is considering palliative care and comfort measures at this time. Will continue the pain management. Further recommendations based on the clinical course. Prognosis guarded. MTDD
[2016-04-09] MEDS: QUEtiapine 25 MG TAB PO SCH (19:44)
[2016-04-10] MEDS: KETOROLAC 30 MG/ML 1 ML VIAL IVP SCH ×4 (00:55→17:42)
[2016-04-10] MEDS: LEVOTHYROXINE 88 MCG TAB PO SCH (06:21)
[2016-04-10] MEDS: RIVASTIGMINE 9.5MG/24HR PATCH TRANSDERM SCH (08:51)
[2016-04-10] MEDS: BRIMONIDINE TARTRATE 0.2% DROPS 5 ML BTL RIGHT EYE SCH ×2 (08:51→21:20)
[2016-04-10] MEDS: PANTOPRAZOLE 40 MG TABLET PO SCH (08:53)
[2016-04-10] MEDS: LISINOPRIL 20 MG TAB PO SCH ×2 (08:53→21:19)
[2016-04-10] MEDS: HYDROCHLOROTHIAZIDE 12.5 MG CAP PO SCH (08:53)
[2016-04-10] MEDS: OXYBUTYNIN CHLORIDE 5 MG TAB PO SCH ×2 (08:54→21:19)
[2016-04-10] MEDS: MEMANTINE 10 MG TAB PO SCH (08:54)
[2016-04-10] MEDS: METOPROLOL TARTRATE 50 MG TAB PO SCH (08:54)
[2016-04-10] MEDS: CALCIUM CARB-VIT D 500MG-200UN 1 EACH TAB PO SCH (08:55)
[2016-04-10] MEDS: CHOLECALCIFEROL 1,000 UNIT TAB PO SCH (08:55)
--- NOTE | 2016-04-10 10:38 | PN ---
DATE OF SERVICE: 04/09/2016 INTERVAL HISTORY: Juanita Rose is an 85 -year-old female admitted to the hospital with severe left-sided neck pain. Pain seems to be improved today. Patient is more awake and oriented. No fever. No chills. No acute overnight issues. Denied any complaints of chest pain or short of breath. Complete review of systems negative except as above. CURRENT MEDICATIONS: Reviewed. PHYSICAL EXAMINATION: An 85 -year-old male lying in bed. Awake, alert, oriented, x3. Appears to be in no apparent distress. VITALS: Blood pressure is 119/66, pulse is 60, respiratory rate 18, temperature afebrile, pulse ox 99% on room air. HEENT: Atraumatic, normocephalic. NECK: Supple. No jugular venous distention. CARDIOVASCULAR: S1, S2 muffled. No murmurs, no gallop, no rub. LUNGS: Bilateral air entry present. No wheezing, no crackles. ABDOMEN: Soft, nontender. Bowel sounds present. CENTRAL NERVOUS SYSTEM: Awake, alert and oriented times two to three. The patient does have underlying dementia, able to move all her extremities. EXTREMITIES: No edema. Pulses palpable bilaterally. No clubbing or cyanosis. PSYCHIATRIC: Cooperative. MUSCULOSKELETAL: Patient does have pain on the left side of the neck and unable to lift her hand above the head. EXTREMITIES: No edema. Pulses are palpable bilaterally. No clubbing or cyanosis. PSYCHIATRIC: Cooperative. LABORATORY DATA: Reviewed. IMPRESSION: 1. Acute left-sided neck pain, muscle strain, continue with Flexeril, Dilaudid, Toradol, Ativan, as needed. Follow up closely. Improving at this time. Continue the PT, OT. 2. Recent urinary tract infection with pseudomonas currently on ceftazidime IV infusion therapy as an outpatient. 3. Recurrent urinary tract infection. 4. Hypertension. 5. Hyperlipidemia. 6. Hypothyroidism. 7. Dementia. 8. History of rectal prolapse and bladder prolapse. 9. History of bladder prolapse with pessary placement. 10. History of three abdominal aortic aneurysms. 11. History of glaucoma. 12. History of diverticulosis and diverticulitis. 13. Scoliosis. 14. History of cerebrovascular accident/transient ischemic attack. 15. Deafness and hearing disorder. 16. CODE STATUS IS COMFORT MEASURES. DISCUSSION AND PLAN: The patient will be continued on pain management as discussed above. Continue current management and follow-up closely. I discussed with the family in detail. Further recommendation based on clinical course. Anticipate transfer to rehab most likely tomorrow. MARIANA
[2016-04-10] MEDS ORDERED: BISACODYL 5 MG TABLET.DR PO PRN (11:02)
--- NOTE | 2016-04-10 11:43 | P.PN ---
Subjective Patient sitting at side of bed pain has been relieved. Patient doing physical therapy able to ambulate and all. Plan for transfer to [facility] for rehabilitation Objective - Vital Signs Vital signs: Vital Signs Temp 98.0 F 04/10/16 07:54 Pulse 57 L 04/10/16 07:54 Resp 16 04/10/16 08:00 BP 149/75 04/10/16 07:54 Pulse Ox 92 L 04/10/16 07:54 Intake & Output 04/09/16 04/10/16 04/10/16 18:59 06:59 18:59 Intake Total 100 Balance 100 Intake: Oral 100 Other: # Voids 1 - Constitutional General appearance: Present: average body habitus - EENT Eyes: Present: PERRLA ENT: Present: hard of hearing Ears: bilateral: normal - Neck Details: Pain with neck motion - Respiratory Respiratory: bilateral: CTA - Cardiovascular Rhythm: regular - Gastrointestinal General gastrointestinal: Present: soft - Integumentary Integumentary: Present: normal - Neurologic Neurologic: Present: CNII-XII intact - Musculoskeletal Musculoskeletal: Present: generalized weakness - Psychiatric Psychiatric Comment(s): Patient has periods of confusion history of dementia - Labs CBC & Chem 7: 04/07/16 16:54 04/07/16 16:54 Assessment and Plan Plan: Assessment Acute left-sided neck pain pain uncontrolled cervical spinal stenosis from the computed tomography scan 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 Bradsahw care for outpatient IV antibiotics Hypertension Hyperlipidemia Hypothyroidism Dementia History of rectal prolapse and bladder prolapse with pessary History of abdominal aneurysms thoracic aneurysm Right eye glaucoma History diverticulitis Scoliosis degenerative joint disease History of CVA History of myocardial infarction CODE STATUS comfort measures Plan Patient had consultation with [employer] found pessary to be in place Transfer to [facility] for rehabilitation Continue IV antibiotics for urinary tract infection
[2016-04-10] MEDS: ATORVASTATIN 10 MG TAB PO SCH (12:44)
[2016-04-10] MEDS: FENOFIBRATE 160 MG TAB PO SCH (12:44)
[2016-04-10] MEDS: amLODIPine 5 MG TAB PO SCH (12:44)
[2016-04-10] MEDS: SODIUM CHLORIDE 0.9% 1,000 ML IV SCH (16:58)
[2016-04-10] MEDS: QUEtiapine 25 MG TAB PO SCH (21:20)
[2016-04-11] MEDS: KETOROLAC 30 MG/ML 1 ML VIAL IVP SCH ×5 (01:00→23:50)
[2016-04-11] MEDS: diphenhydrAMINE 50 MG/ML 1 ML VIAL IVP PRN ×2 (01:00→23:51)
[2016-04-11] MEDS: LEVOTHYROXINE 88 MCG TAB PO SCH (06:58)
[2016-04-11] MEDS: RIVASTIGMINE 9.5MG/24HR PATCH TRANSDERM SCH (10:22)
[2016-04-11] MEDS: PANTOPRAZOLE 40 MG TABLET PO SCH (10:22)
[2016-04-11] MEDS: BRIMONIDINE TARTRATE 0.2% DROPS 5 ML BTL RIGHT EYE SCH ×2 (10:23→22:32)
[2016-04-11] MEDS: HYDROCHLOROTHIAZIDE 12.5 MG CAP PO SCH (10:24)
[2016-04-11] MEDS: METOPROLOL TARTRATE 50 MG TAB PO SCH (10:24)
[2016-04-11] MEDS: OXYBUTYNIN CHLORIDE 5 MG TAB PO SCH ×2 (10:24→22:32)
[2016-04-11] MEDS: LISINOPRIL 20 MG TAB PO SCH ×2 (10:24→22:32)
[2016-04-11] MEDS: CHOLECALCIFEROL 1,000 UNIT TAB PO SCH (10:25)
[2016-04-11] MEDS: CALCIUM CARB-VIT D 500MG-200UN 1 EACH TAB PO SCH (10:27)
[2016-04-11] MEDS: MEMANTINE 10 MG TAB PO SCH (10:27)
--- NOTE | 2016-04-11 11:58 | P.PN ---
Subjective Patient had a period of confusion this morning. Family at bedside hopeful on transferred to [facility] rehab on Saturday Objective - Vital Signs Vital signs: Vital Signs Temp 96.9 F L 04/11/16 07:00 Pulse 65 04/11/16 07:00 Resp 19 04/11/16 07:00 BP 135/76 04/11/16 07:00 Pulse Ox 96 04/11/16 07:00 Intake & Output 04/10/16 04/11/16 04/11/16 18:59 06:59 18:59 Intake Total 322 Balance 322 Intake: Oral 322 Other: Voiding Method Toilet Toilet Bedside Commode Bedside Commode # Voids 1 4 - Constitutional General appearance: Present: average body habitus - EENT Eyes: Present: PERRLA ENT: Present: hard of hearing Ears: bilateral: normal - Neck Details: Limited range of motion the neck - Respiratory Respiratory: bilateral: CTA - Cardiovascular Rhythm: regular - Gastrointestinal General gastrointestinal: Present: soft - Integumentary Integumentary: Present: normal - Neurologic Neurologic: Present: CNII-XII intact - Musculoskeletal Musculoskeletal: Present: generalized weakness - Psychiatric Psychiatric Comment(s): Patient aware that she is in hospital. Confused to time - Labs CBC & Chem 7: 04/07/16 16:54 04/07/16 16:54 Assessment and Plan Plan: Assessment Intractable neck pain noted cervical spinal stenosis and computed tomography scan Urinary tract infection pseudomonas: Resistant Hypertension Hyperlipidemia Hypothyroidism Dementia History of rectal prolapse bladder prolapse with pessary History of of abdominal aortic aneurysm repair and thoracic aneurysm repair History of myocardial infarction Right eye glaucoma History of diverticulitis Scoliosis History of TIA Hearing disorder Plan Transferred to [facility] rehab on Saturday
[2016-04-11] MEDS: FENOFIBRATE 160 MG TAB PO SCH (13:48)
[2016-04-11] MEDS: ATORVASTATIN 10 MG TAB PO SCH (13:49)
[2016-04-11] MEDS: amLODIPine 5 MG TAB PO SCH (13:49)
[2016-04-11 14:54] LABS: Appearance,Urine Clear (Clear); Bilirubin,Urine Negative (Negative); Glucose,Urine (UA) Negative (Negative); Ketones,Urine Negative (Negative); Leukocyte Esterase,Urine Negative (Negative); Nitrite,Urine Negative (Negative); Protein,Urine Negative (Negative); Specific Gravity,Urine 1.007 (1.001-1.035); UA Billing (MACRO vs. MICRO) CHEM; Urobilinogen,Urine <2.0 mg/dL (<2.0)
[2016-04-11] MEDS: SODIUM CHLORIDE 0.9% 1,000 ML IV SCH (15:19)
[2016-04-11] MEDS: QUEtiapine 25 MG TAB PO SCH (22:32)
[2016-04-12] MEDS: CYCLOBENZAPRINE 10 MG TAB PO PRN (01:29)
[2016-04-12] MEDS: KETOROLAC 30 MG/ML 1 ML VIAL IVP SCH ×2 (06:15→11:41)
[2016-04-12] MEDS: LEVOTHYROXINE 88 MCG TAB PO SCH (06:16)
[2016-04-12] MEDS: METOPROLOL TARTRATE 50 MG TAB PO SCH (09:20)
[2016-04-12] MEDS: CHOLECALCIFEROL 1,000 UNIT TAB PO SCH (09:20)
[2016-04-12] MEDS: PANTOPRAZOLE 40 MG TABLET PO SCH (09:20)
[2016-04-12] MEDS: MEMANTINE 10 MG TAB PO SCH (09:21)
[2016-04-12] MEDS: OXYBUTYNIN CHLORIDE 5 MG TAB PO SCH ×2 (09:21→21:43)
[2016-04-12] MEDS: CALCIUM CARB-VIT D 500MG-200UN 1 EACH TAB PO SCH (09:22)
[2016-04-12] MEDS: HYDROCHLOROTHIAZIDE 12.5 MG CAP PO SCH (09:22)
[2016-04-12] MEDS: LISINOPRIL 20 MG TAB PO SCH ×2 (09:22→21:43)
[2016-04-12] MEDS: BRIMONIDINE TARTRATE 0.2% DROPS 5 ML BTL RIGHT EYE SCH ×2 (09:23→21:43)
[2016-04-12] MEDS: RIVASTIGMINE 9.5MG/24HR PATCH TRANSDERM SCH (09:27)
[2016-04-12] MEDS: amLODIPine 5 MG TAB PO SCH (11:37)
[2016-04-12] MEDS: ATORVASTATIN 10 MG TAB PO SCH (11:37)
[2016-04-12] MEDS: FENOFIBRATE 160 MG TAB PO SCH (11:38)
[2016-04-12] MEDS: SODIUM CHLORIDE 0.9% 1,000 ML IV SCH (16:50)
--- NOTE | 2016-04-12 20:27 | P.PN ---
Subjective Patient continues with periods of confusion. Awaiting transferred to [facility] for our rehabilitation for extremity weakness Objective - Vital Signs Vital signs: Vital Signs Temp 97.8 F 04/12/16 17:58 Pulse 60 04/12/16 17:58 Resp 20 04/12/16 17:58 BP 146/89 04/12/16 17:58 Pulse Ox 97 04/12/16 17:58 Intake & Output 04/12/16 04/12/16 04/13/16 06:59 18:59 06:59 Other: Voiding Method Toilet Toilet Toilet Bedside Commode Diaper Diaper Diaper Incontinent Incontinent Incontinent # Voids 2 2 - Constitutional General appearance: Present: average body habitus - EENT Eyes: Present: PERRLA ENT: Present: hard of hearing Ears: bilateral: normal - Neck Neck: Present: normal ROM - Respiratory Respiratory: bilateral: CTA - Cardiovascular Rhythm: regular - Gastrointestinal General gastrointestinal: Present: distended, soft - Integumentary Integumentary: Present: normal - Neurologic Neurologic: Present: CNII-XII intact - Musculoskeletal Musculoskeletal: Present: generalized weakness - Psychiatric Psychiatric Comment(s): Patients baseline dementia includes periods of confusion and agitation - Labs CBC & Chem 7: 04/07/16 16:54 04/07/16 16:54 Labs: Microbiology - Last 24 Hours (Table) 04/11/16 14:30 Urine Culture - Final Urine,Catheterized Assessment and Plan Plan: Assessment Cervical spine stenosis with torticollis recent urinary tract infection was pseudomonas quinolone resistant hypertension hyperlipidemia hypothyroidism dementia history of rectal prolapse and bladder prolapse with pessary history of abdominal aortic aneurysm repair and thoracic aneurysm repair history of [place] history of,glaucoma history of diverticulitis hearing disorder hard of hearing plan transferred to [facility] for rehabilitation
--- NOTE | 2016-04-12 20:40 | P.DS ---
Providers Date of admission: 04/10/16 08:12 Expected date of discharge: 04/13/16 Attending physician: Neal Nicole Primary care physician: Neal Nicole Pertinent Studies: 85-year-old female was readmitted to the hospital after a period of intractable pain to cervical spine. Pain is controlled. Patient continues and IV antibiotics for urinary tract infection pseudomonas: resistant. Patient is a PICC line in place for continue antibiotics patient has seven more days of IV antibiotics. Patient is to be transferred to [facility] for rehabilitation home meds will be continue Assessment cervical spine stenosis with torticollis urinary tract infection pseudomonas treated with ceftazidime under the direction Dr. Bradshaw hypertension hyperlipidemia hypothyroidism dementia history of rectal prolapse and bladder prolapse with pessary in place history of myocardial infarction history of the TIA hearing disorder hard of hearing Code status comfort measures no CPR Plan continued IV antibiotics for seven more days transferred to [facility] for rehabilitation for weakness Plan - Discharge Summary Discharge Medication List Fenofibrate,Micronized [Fenofibrate] 134 mg PO DAILY@1200 12/11/15 [History] Hydrochlorothiazide [Hydrodiuril] 12.5 mg PO DAILY 12/11/15 [History] Levothyroxine Sodium [Synthroid] 88 mcg PO DAILY 12/11/15 [History] Lisinopril 20 mg PO BID 12/11/15 [History] Memantine [Namenda] 5 mg PO QAM 12/11/15 [History] Atorvastatin [Lipitor] 10 mg PO DAILY@1200 12/13/15 [History] Calcium Carbonate/Vitamin D3 [Calcium 600-Vit D3 200 Tablet] 1 tab PO DAILY [History] Cholecalciferol [Vitamin D3] 5,000 unit PO DAILY 12/13/15 [History] Fexofenadine HCl [Beatrice Allergy] 180 mg PO QAM 12/13/15 [History] Glucosamine HCl/Chondr Góemz A Na [Osteo Bi-Flex Caplet] 1 tab PO QAM 12/13/15 [ History] Meclizine [Antivert] 25 mg PO TID PRN 12/13/15 [History] QUEtiapine [SEROquel] 12.5 mg PO HS 12/13/15 [History] Rivastigmine 9.5MG/24Hr Patch [Exelon 9.5MG/24Hr Patch] 1 patch TRANSDERM DAILY 12/13/15 [History] Brimonidine Tartrate [Alphagan P 0.2% Ophth Soln] 1 drops RIGHT EYE BID [History] Omeprazole [PriLOSEC] 40 mg PO DAILY 04/02/16 [History] amLODIPine [Norvasc] 5 mg PO DAILY@1200 04/02/16 [History] Acetaminophen Tab [Tylenol] 650 mg PO Q6HR PRN #0 tab 04/06/16 [Rx] Ceftazidime [Fortaz] 2 gm IVPB Q12HR #5 vial 04/06/16 [Rx] Metoprolol Tartrate [Lopressor] 50 mg PO QAM 04/07/16 [History] Oxybutynin Chloride [Ditropan] 5 mg PO BID 04/07/16 [History] Acetaminophen Tab [Tylenol] 650 mg PO Q6HR PRN #0 tab 04/12/16 [Rx] Bisacodyl [Dulcolax] 10 mg PO DAILY PRN #0 tablet. 04/12/16 [Rx] Follow up Appointment(s)/Referral(s): Neal Nicole MD [Primary Care Provider] - 1-2 days Activity/Diet/Wound Care/Special Instructions: The Care Team: #[phone]
[2016-04-12] MEDS: QUEtiapine 25 MG TAB PO SCH (21:43)
[2016-04-13] MEDS: LEVOTHYROXINE 88 MCG TAB PO SCH (06:21)
[2016-04-13 07:12] VITALS: BP 165/87; PULSE 66; RESP 16; TEMP 97.9
[2016-04-13] MEDS: MEMANTINE 10 MG TAB PO SCH (08:04)
[2016-04-13] MEDS: RIVASTIGMINE 9.5MG/24HR PATCH TRANSDERM SCH (08:04)
[2016-04-13] MEDS: METOPROLOL TARTRATE 50 MG TAB PO SCH (08:04)
[2016-04-13] MEDS: BRIMONIDINE TARTRATE 0.2% DROPS 5 ML BTL RIGHT EYE SCH (08:04)
[2016-04-13] MEDS: PANTOPRAZOLE 40 MG TABLET PO SCH (08:04)
[2016-04-13] MEDS: OXYBUTYNIN CHLORIDE 5 MG TAB PO SCH (08:04)
[2016-04-13] MEDS: LISINOPRIL 20 MG TAB PO SCH (08:05)
[2016-04-13] MEDS: HYDROCHLOROTHIAZIDE 12.5 MG CAP PO SCH (08:05)
[2016-04-13] MEDS: CHOLECALCIFEROL 1,000 UNIT TAB PO SCH (08:05)
[2016-04-13] MEDS: CALCIUM CARB-VIT D 500MG-200UN 1 EACH TAB PO SCH (08:05)
--- NOTE | 2016-04-13 08:20 | XR ---
EXAMINATION TYPE: XR chest 2V DATE OF EXAM: 04/13/2016 6:40 AM COMPARISON: 12/11/2015 HISTORY: ECF placement FINDINGS: The lungs are clear and there is no pneumothorax, pleural effusion, or focal pneumonia. Postsurgical change and PICC line noted. Marked thoracic aortic prominence again noted. Hypertrophic and degenera tive change of the spine. Correlate for small hiatal hernia. IMPRESSION: 1. No acute process. However, there persists diffuse ectasia of the thoracic aorta. Thoracic aortic a neurysm in the differential diagnosis and has been reported by previous CT scan measuring greater mallory n 5 cm. Correlate clinically.
== END 2016-04-13 10:57 | DRG 552 ==
LOC: EC 12:13 → 3OBS 16:25 → OBSVTOIN 04-10 08:12 → 4MS4W 04-10 17:23
PROVIDERS: ADMIT Family Medicine; ATTEND Family Medicine
DX: M48.02 Spinal stenosis, cervical region (principal); F03.90 Unspecified dementia, unspecified severity, without behavioral disturbance, psychotic disturbance, mood disturbance, and anxiety; M41.9 Scoliosis, unspecified; N39.0 Urinary tract infection, site not specified; B96.5 Pseudomonas (aeruginosa) (mallei) (pseudomallei) as the cause of diseases classified elsewhere; M43.6 Torticollis; E03.9 Hypothyroidism, unspecified; E78.00 Pure hypercholesterolemia, unspecified; E78.5 Hyperlipidemia, unspecified; F41.9 Anxiety disorder, unspecified; H40.9 Unspecified glaucoma; H91.90 Unspecified hearing loss, unspecified ear; I10 Essential (primary) hypertension; I25.2 Old myocardial infarction; M19.90 Unspecified osteoarthritis, unspecified site; M50.30 Other cervical disc degeneration, unspecified cervical region; N81.10 Cystocele, unspecified; N81.6 Rectocele; S16.1XXA Strain of muscle, fascia and tendon at neck level, initial encounter; Z86.19 Personal history of other infectious and parasitic diseases; Z86.73 Personal history of transient ischemic attack (TIA), and cerebral infarction without residual deficits; Z86.79 Personal history of other diseases of the circulatory system; Z87.891 Personal history of nicotine dependence; Z79.899 Other long term (current) drug therapy
CPT/HCPCS: 71020; 72125; 80053; 81003; 85025; 87086; 93005; 94760; 96365; 96366; 96372; 96374; 96375; 96376; 99285